=== PATIENT | female | born 1995 | race Caucasian/White ===

== ENCOUNTER → 2020-12-06 09:08 | Outpatient (BNVA) | payer MEDICAID, SELFPAY | PROVIDERS: Visit Provider Internal Medicine Pulmonary Disease | DX: J45.909 Unspecified asthma, uncomplicated (principal); Z91.09 Other allergy status, other than to drugs and biological substances | CPT/HCPCS: 99202 ==

== ENCOUNTER 2021-05-28 14:27 | Outpatient (REF) | payer MEDICAID, SELFPAY ==
[2021-05-28 15:24] LABS: MANUAL DIFF FLAG NO
[2021-05-28 15:37] LABS: Basophils Percent Auto 0.3 % (0-2); Eosinophils Absolute Auto 0.7 X10*3/uL (0.0-0.4); Eosinophils Percent Auto 4.8 % (0-4); Hematocrit 43.6 % (37-47); Hemoglobin 14.4 g/dl (12.0-16.0); Imm Gran Abs Auto 0.04 X10*3/uL (0.00-0.03); Imm Gran Pct Auto 0.3 % (0.0-0.4); Lymphocytes Absolute Auto 2.8 X10*3/uL (1.2-4.9); Lymphocytes Percent Auto 20.8 % (20-40); Mean Corpuscular Hemoglobin 29.1 pg (27.0-33.0); Mean Corpuscular Volume 88.1 fL (80-98); Mean Platelet Volume 11.3 fL (9.4-12.3); Monocytes Absolute Auto 0.6 X10*3/uL (0.1-1.2); Monocytes Percent Auto 4.7 % (2-11); Neutrophils Absolute Auto 9.4 X10*3/uL (2.0-8.3); Neutrophils Percent Auto 69.1 % (45-73); Platelet Count 236 X10*3/uL (160-400); Red Blood Count 4.95 X10*6/uL (4.20-5.50); Red Cell Distribution Width 13.4 % (11.0-16.0); White Blood Count 13.6 X10*3/uL (4.8-10.8)
== END 2021-05-28 14:28 | disposition home or self-care (01) ==
LOC: HO.LAB 14:27
PROVIDERS: Visit Provider Internal Medicine Pulmonary Disease
DX: Z91.09 Other allergy status, other than to drugs and biological substances (principal)
CPT/HCPCS: 36415; 82785; 85025; 86003

== ENCOUNTER 2021-07-31 12:42 | Outpatient (REF) | payer MEDICAID, SELFPAY ==
--- NOTE | ~2021-07-31 | XR_ITS ---
EXAMINATION: XR THORACIC SPINE CLINICAL INFORMATION: Thoracic spine pain. COMPARISON: Chest radiographs dated 06/30/2018. TECHNIQUE: Frontal, lateral and swimmer's views of the thoracic spine were obtained. FINDINGS: Vertebral body alignment is normal. There is a mild L1 anterior wedge compression fracture, which appears to be new from the lateral chest radiograph dated 06/30/2018. The disc spaces are well-maintained. No acute fracture or spondylolisthesis is seen. There is moderate to marked spondylosis extending from T8-9 through T10-11. The posterior elements are intact. The paravertebral soft tissues are unremarkable. XR/XR thoracic spine 3V IMPRESSION: 1. There is an age-indeterminate mild L1 anterior wedge compression fracture. 2. The disc spaces are well-maintained. 3. There is multi-level moderate to marked lower thoracic spondylosis.
== END 2021-07-31 12:43 | disposition home or self-care (01) ==
LOC: HO.XRAY 12:42
PROVIDERS: PCP Student in an Organized Health Care Education/Training Program; Visit Provider Student in an Organized Health Care Education/Training Program
DX: M54.6 Pain in thoracic spine (principal)
CPT/HCPCS: 72072

== ENCOUNTER 2022-01-30 08:06 | Outpatient (REF) | payer MEDICAID, SELFPAY ==
--- NOTE | ~2022-01-30 | XR_ITS ---
EXAMINATION: XR LUMBOSACRAL SPINE CLINICAL INFORMATION: Low back pain COMPARISON: Chest radiographs 06/30/2018, 08/17/2009 TECHNIQUE: 4 views of the lumbar spine are obtained. FINDINGS: There is normal lumbar segmentation with 5 nonrib-bearing lumbar vertebrae with normal lumbar lordosis. There is borderline levocurvature lower lumbar spine which may be positional. There is mild superior and inferior endplate depression at T12 with secondary degenerative changes and bridging anterior osteophyte at T11-T12. Compression not noted on chest radiographs 2017. Otherwise, the degenerative changes suggest chronic finding. Clinically correlate. The lumbar vertebrae show no vertebral compression or spondylolisthesis or destructive process. There are degenerative disc changes at L5-S1 with disc narrowing and mild endplate sclerosis and borderline vertebral body spurring. The SI joints and visualized sacrum are unremarkable. XR/XR lumbar spine 2-3V IMPRESSION: 1. Mild compression of T12 with secondary degenerative changes suggesting chronic finding. Clinical correlation. 2. No lumbar vertebral compression, spondylolisthesis, or destructive process. 3. Degenerative disc changes L5-S1.
== END 2022-01-30 08:07 | disposition home or self-care (01) ==
LOC: HO.XRAY 08:06
PROVIDERS: Absent Provider Student in an Organized Health Care Education/Training Program; PCP Student in an Organized Health Care Education/Training Program; Visit Provider Emergency Medicine
DX: M54.50 Low back pain, unspecified (principal)
CPT/HCPCS: 72100

== ENCOUNTER 2025-01-26 11:15 | Outpatient (REF) | payer MEDICAID, SELFPAY ==
--- OUTSIDE RECORDS SUMMARY | 2025-01-26 12:34 | XMS_ITS | Clinical Summary ---
Author Organization [facility] 's Address [address] [place] [address] Care Team Providers Care Vending Supervisor Name Role Phone Sherin Merritt MD Unavailable [phone] Art Bello MD Unavailable Eleanor Bearden MD Primary Care Provider [phone] Raúl Dumont MD Unavailable [phone] Kory Maynard MD Unavailable Carlita Thornton MD Unavailable [phone] Zaynab Walker MD Unavailable Wagner Allen MD Unavailable [phone] Leigh Ann Pillai MD Unavailable Wagner Allen MD Unavailable [phone] Leah Jones CNM Unavailable [phone] Source Comments Please note that some or all of the patient's information could have additional privacy protections. State laws allow health care providers to render certain types of treatment to minors without parental consent. Please do not assume that this information can be shared solely by obtaining just the consent of the patient's parent/guardian. Please determine if all or part of the patient's care was rendered without parent/guardian involvement. 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 Her echocardiogram showed normal cardiac anatomy and function without evidence of congenital heart disease or hypertrophy. I do not recommend any changes in the delivery plan. I do not recommend any special precautions for the remainder of the , during delivery, or in the immediate period. If there are any clinical concerns in the interim, we would be happy to perform a or evaluation. Family History Medical History Relation Name Comments Arrhythmia Neg Hx Cardiomyopathy Neg Hx Congenital heart disease Neg Hx Genetic disorder Neg Hx SIDS Neg Hx Sudden Cardiac Neg Hx Social History Tobacco Use Types Packs/Day Years Used Date Smoking Tobacco: Former Cigarettes Other Needs Answer Date Recorded Anything else about your child you'd like help w [facility]? Not on file 07/10/2023 Share good news about positive changes: Not on f ile 07/10/2023 Comments No Sex and Gender Information Value Date Recorded Sex Assigned at Not on file Legal Sex Female 3:27 PM EDT Gender Identity Not on file Sexual Orientation Not on file Last Filed Vital Signs Vital Sign Reading Time Taken Comments Blood Pressure - - Pulse - - Temperature - - Respiratory Rate - - Oxygen Saturation - - Inhaled Oxygen Concentration - - Weight 127 kg (280 lb) 06/11/2023 10:47 AM EDT Height 162.6 cm (5' 4 ) 06/11/2023 10:47 AM EDT Body Mass Index 48.06 06/11/2023 10:47 AM EDT Plan of Treatment Health Maintenance Due Date Last Done Comments DTaP/TDAP/TD VACCINES (1 - Tdap) 2001 ADOLESCENT HIV SCREENING 2007 COVID-19 Vaccine ( season) 2024 12/17/2021, 01/04/2021, 12/14/2020 INFLUENZA (#1) 2024 NIRSEVIMAB VACCINES UNDER 8 MONTHS Aged Out No longer eligible b ased on patient's age to complete this topic Insurance [facility] MEDICAID Care Teams Vending Supervisor Relationship Specialty Start Date End Date Eleanor Bearden MD [address] [place] [address] [phone] PCP - General Family Medicine 05/27/23 Sherin Merritt MD [address] [place] [address] 05/27/23 Art Bello MD [address] [place] [address] Maternal and Medicine 05/27/23 Raúl Dumont MD [address] [place] [phone] Consulting Physician Pediatric Surgery 05/28/23 Kory Maynard MD [address] [place] [phone] Consulting Physician Neurosurgery 05/28/23 Carlita Thornton MD [address] [place] [phone] Consulting Physician Maternal and Medicine 05/28/23 Zaynab Walker MD [address] [place] [phone] Consulting Physician Urology 05/28/23 Wagner Allen MD [address] [place] [phone] Consulting Physician Cardiology 05/29/23 Leigh Ann Pillai MD [address] [place] [phone] Consulting Physician Neonatology 05/29/23 Wagner Allen MD [address] [place], [place] [phone] Consulting Physician Cardiology 06/11/23 Leah Jones CNM [address] [place] [phone] Certified Nurse Identification Technician 06/11/23
--- OUTSIDE RECORDS SUMMARY | 2025-01-26 12:34 | XMS_ITS | Encounter Summary ---
Author Organization [employer] Address [address] [place] [address] [address] [place] [address] Care Team Providers Care Attraction Attendant Name Role Phone Eleanor Bearden MD Primary Care Provider [phone] Reason for Visit * Reason Onset Date Comments triage pt 1 out of 2 07/13/2024 Encounter Details Date Type Department Care Team ([facility] st Contact Info) Description 07/13/2024 Telephone [facility] [address] [place], [place] [phone] Eleanor Bearden MD [address] [place] [address] triage pt 1 out of 2 Social History Tobacco Use Types Packs/Day Years Used Date Smoking Tobacco: Former Cigarettes Q uit: 01/24/2023 Passive Smoke Exposure: Never Smokeless Tobacco: Never Alcohol Use Standard Drinks/Week Comments Never 0 (1 standard drink = 0.6 oz pur e alcohol) Depression Answer Date Recorded Patient Health Questionnaire-9 Score 0 01/20/2024 Patient Health Questionnaire-9 Score 0 01/20/2024 Last PHQ-9: Questionnaire Data Not on file 0 01/20/2024 Housing Stability Answer Date Recorded What is your housing situation today? I have darrian feliciano 01/20/[address] you li ve. Do you have problems with any of the following? None of the above 01/20/2024 Food Insecurity Answer Date Recorded Within the past 12 months, y ou worried that your food would run out before you got money to buy more: Never True 01/20/2024 Within the past 12 months,th e food you bought just didn't last and you didn't have enough money to get more: Never True Transportation Answer Date Recorded In the past 12 months, has l ack of transportation kept you from medical appts, meetings, work or from getting things needed for daily living? No 01/20/2024 Utilities Answer Date Recorded In the past 12 months, has t he electric, gas, oil or water company threatened to shut off services in your home? No 01/20/2024 Depression Answer Date Recorded Patient Health Questionnaire-2 Score 0 01/20/2024 Comments No Sex and Gender Information Value Date Recorded Sex Assigned at Female 08/25/2022 10:19 AM EDT Legal Sex Female 10:19 AM EDT Gender Identity Female 08/25/2022 10:19 AM EDT Sexual Orientation Straight 06/21/2024 4: 04 PM EDT documented as of this encounter Miscellaneous Notes * Telephone Encounter - Loni Beal - 07/13/2024 12:11 PM EDT .Symptoms: Sore Throat and fever Outcome: Schedule an appointment to be seen within 24 hours Reason: Caller denied all higher acuity questions The caller accepted this outcome. documented in this encounter Plan of Treatment Not on file documented as of this encounter Visit Diagnoses Not on filedocumented in this encounter Additional Health Concerns Assessment Noted Time PHQ-9 Depression Total Score: 0 01/20/20 10:54 AM EDT documented as of this encounter Care Teams Attraction Attendant Relationship Specialty Start Date End Date Eleanor Bearden MD [address] [place] [phone] PCP - General Family Medicine 03/09/20 Zohreh Gutierrez Client Delivery ManagerBellows Charger Assembler 01/20/24 documented as of this encounter
--- OUTSIDE RECORDS SUMMARY | 2025-01-26 12:34 | XMS_ITS | Clinical Summary ---
Author Organization [employer] Address [address] [facility] [address] [place] [address] Care Team Providers Care Account Financial Manager Name Role Phone Eleanor Bearden MD Primary Care Provider Allergies No known active allergies Medications fluticasone (Flonase Allergy Relief) 50 MCG/ACT nasal spray Administer 2 sprays into affected nostril(s) at bed time. 1 Active albuterol 108 (90 Base) MCG/ACT inhalerIndicatio ns:Moderate persistent asthma without complication Inhale 2 puffs every 4 (four) hours. 18 g 5 3 Active albuterol (2.5 MG/3ML) 0.083% nebulizer solutionIndicati ons:Moderate persistent asthma without complication Take 3 mL by nebulization every 6 (six) hours. 75 mL 5 3 Active Blood Pressure kitIndications:E levated blood pressure reading 1 Units in the morning. 1 kit 3 Active lisinopril (Prinivil) 10 MG tabletIndication s:Primary hypertension Take 1 tablet (10 mg) by mouth Once per day. 30 tablet 11 4 025 Active Fluticasone-Salm eterol (Advair Diskus) 250-50 MCG/ACT aerosol powderIndication s:Moderate persistent asthma without complication Inhale 1 puff 2 times daily. 60 each 5 4 Active Active Problems Problem Noted Date Diagnosed Date Elevated blood pressure reading 11/21/2022 Assessment & Plan (11/21/2022 4:24 PM EST): - If SBP < 130/DBP <80 mmHg in more than 75% of home self-monitoring, no need to continue monitoring and make f/u with PCP in 3 month - If SBP >130-165/DBP >80-115 mmHg , start amlodipine 5 mg qd and f/u with PCP in 1 month - If SBP > 165/ DBP> 115 mmHg, consult with covering provider - If SBP <90/DBP <50 mmHg, consult with covering provider. Arthritis of lumbar spine 01/31/2022 Mixed anxiety and depressive disorder 06/28/2013 Asthma 06/28/2013 Assessment & Plan (11/21/2022 4:22 PM EST): Current with mild exacerbation, will send steroid burst and refill controller/rescue inhalers, recommended f/u with PCP Allergic rhinitis 06/28/2013 Obesity 08/16/2012 Encounters Date Type Department Care Team Description 01/06/2025 Population Health Risk Score [facility] () Department [address] [place] [phone] Provider, Population Health Generic from Last 3 Months Immunizations Name Administration Dates Next Due DTP 03/05/1998, 5,1994,06/10,1994 HPV, Quadrivalent 05/09/2008,02/08/2008,11/02/19 08 Hep B, Adolescent or Pediatric 1994,1993,1994 Hib (HbOC) 05/20/1995, 4,1994,04/10 IPV 03/05/1998, 4,1994,03/31 Influenza injectable quadriv alent preservative free 07/31/2021 Influenza, IIV3, injectable 07/31/2023 Influenza, Split (incl. lola fied surface antigen) 08/16/2012 MMR 03/05/1998,02/10/1995 Meningococcal MPSV4 04/24/2009 Pfizer Covid-19 Vaccine 12+ 12/17/2021, 1,12/14/2020 Tdap 07/31/2023,10/04/2019,02/13/2006 Social History Tobacco Use Types Packs/Day Years Used Date Smoking Tobacco: Former Cigarettes Q uit: 01/24/2023 Passive Smoke Exposure: Never Smokeless Tobacco: Never Tobacco Cessation:Counseling Given: Not Answered Alcohol Use Standard Drinks/Week Comments Never 0 [...] Orientation Straight 06/21/2024 4: 04 PM EDT Last Filed Vital Signs Vital Sign Reading Time Taken Comments Blood Pressure 128/98 09/03/2024 9:12 AM EST Pulse 112 09/03/2024 9:04 AM EST Temperature 36.2 ??C (97.2 ??F) 09/03/2024 9:04 AM ES T Respiratory Rate 20 09/03/2024 9:04 AM EST Oxygen Saturation 100% 09/03/2024 9:04 AM EST Inhaled Oxygen Concentration - - Weight 152 kg (335 lb) 09/03/2024 9:04 AM EST Height 165.1 cm (5' 5 ) 09/03/2024 9:04 AM EST Body Mass Index 55.75 09/03/2024 9:04 AM EST Plan of Treatment Health Maintenance Due Date Last Done Comments HIV Screening 1994 Alcohol/Substance Use Screening 2006 Family Planning (PISQ) 2009 Hepatitis C Screening 02/08/2012 Pneumococcal Vaccine: Pediatrics (0 to 5 Years) and At-Risk Patients (6 to 49) Years) (1 of 2 - PCV) 2013 Pap Smear 2015 Cervical Cancer Screening 02/08/2024 HPV/Cotest 02/08/2024 COVID-19 Vaccine ( season) 2024 12/17/2021, 01/04/2021, 12/14/2020 Influenza Vaccine (#1) 2024 , 07/31/2021, 08/16/2012 Depression Screening 01/19/2025 01/20/2024, 01/20/20 24 SDOH Screening 01/19/2025 01/20/2024 Tobacco Screening 06/20/2025 06/20/2024 Lipid Panel 08/07/2026 08/07/2021 DTaP/Tdap/Td Vaccines (9 - Td or Tdap) 07/31/2033 07/31/2023, 10/04/2019, 02/13/2006, Additional history exists Zoster Vaccines (1 of 2) 02/08/2044 RSV Patients and Patients Aged 60 years or older (1 - 1-dose 75+ series) 2069 Hepatitis B Vaccines Completed 1994, 1994, 1994 HIB Vaccines Completed 05/20/1995, 07/26, 1994, Additional history exists IPV Vaccines Completed 03/05/1998, 08/26, 1994, Additional history exists HPV Vaccines Completed 05/09/2008, 01/24, 11/02/2007 Meningococcal Vaccine Aged Out 04/24/2009 No monisha richard eligible based on patient's age to complete this topic Hepatitis A Vaccines Aged Out No long er eligible based on patient's age to complete this topic RSV under 20 months Aged Out No longe r eligible based on patient's age to complete this topic Rotavirus Vaccines Aged Out No longer eligible based on patient's age to complete this topic Procedures Procedure Name Priority Date/Time Associated Diagnosis Comments LIPID PANEL, STANDARD Routine 08/07/2021 9:19 AM EDT from Last 3 Months or Most Recently Relevant to Health Maintenance Results * (ABNORMAL) LIPID PANEL, STANDARD (08/07/2021 9:19 AM EDT) Chol/HDLC Ratio 4.6 <5.0 (calc) [facility] Cholesterol, Total 192 <200 mg/dL [facility] HDL Cholesterol 42(L) > OR = 50 mg/dL [facility] Comment: Verified by repeat analysis. ?? LDL Cholesterol 119(H) mg/dL (calc) [facility] Comment: Reference range: <100 ?? Desirable range <100 mg/dL for primary prevention; ?? <70 mg/dL for patients with CHD or diabetic patients ?? with > or = 2 CHD risk factors. ?? LDL-C is now calculated using the Ashwin-Chung ?? calculation, which is a validated novel method providing ?? better accuracy than the Friedewald equation in the ?? estimation of LDL-C. ?? Ashwin TARIQ et al. COLT. 2013;310(19): 8386-5962 ?? (http://education.[employer]/faq/SRR685) Non-HDL Cholesterol 150(H) <130 mg/dL (calc) [facility] Comment: For patients with diabetes plus 1 major ASCVD risk ?? factor, treating to a non-HDL-C goal of <100 mg/dL ?? (LDL-C of <70 mg/dL) is considered a therapeutic ?? option. Triglycerides 192(H) <150 mg/dL [facility] 08/07/2021 9:19 AM EDT us Eleanor Bearden MD LAB BLOOD ORDERABLES Final Resul t [facility] [address] from Last 3 Months or Most Recently Relevant to Health Maintenance Insurance [facility] C3 Care Teams Account Financial Manager Relationship Specialty Start Date End Date Eleanor Bearden MD [address] [place] [phone] PCP - General Family Medicine 03/09/20 Zohreh Gutierrez Sulfuric Acid Plant OperatorCoastal/Harbor Defense Officer 01/20/24
--- OUTSIDE RECORDS SUMMARY | 2025-01-26 12:34 | XMS_ITS ---
Author Name [facility] Organization Unknown History of Medication Use Medication Directions Dispensed Refills Start Date End Date Stat us nitrofurantoin monohydrate (MACROBID) 100 MG capsule Take 1 capsule (100 mg total) by mouth 2 (two) times a day with meals. Dispense generic equivalent of MACROBID 08/06/2023 08/14/2023 active NIFEdipine (PROCARDIA XL) 30 MG 24 hr tablet TAKE 2 TABLETS BY MOUTH ONCE DAILY 10/29/2023 11/02/2023 active ibuprofen (MOTRIN) 600 MG tablet Take 1 tablet (600 mg total) by mouth 4 times daily (every 6 hours) as needed for mild pain. 09/29/2023 10/30/2023 active No known medications No known medications active Problems Problem Status Onset Date Problem Type Date of Resolution Source spina bifida with myelomeningocele affecting management of mother active 2023-06-[address] [facility] Encounter for management and injection of depo-Provera active EncounterDiagnosisAct [facility] High-risk in third trimester active 2023-08-06 ProblemAct [facility] Obesity in active 2023-08-06 ProblemAct [facility] Chronic hypertension active EncounterDiagnosisA ct [facility] Elevated blood pressure affecting , antepartum active 2023-08-26 ProblemAct [facility] Chronic hypertension affecting active 2023-09-14 ProblemAct [facility] care following delivery active EncounterDiagnosisAct [facility] Asthma active 2023-08-06 ProblemAct [facility] Family history of neural tube defect active 2023-08-06 ProblemAct [facility] History of active 2023-08-06 ProblemAct [facility] Anxiety in , antepartum active 2023-08-06 ProblemAct [facility] Encounters Encounter Type Encounter Reason Primary Diagnosis Location Date Ambulatory Encounter for routine follow-up Encounter for routine follow-up [facility] 12/22/2023 Inpatient Encounter for routine follow-up Encounter for routine follow-up [facility] 09/25/2023 Ambulatory Obesity complicating , third trimester Obesity complicating , third trimester [facility] 09/25/2023 Ambulatory Encounter for supervision of normal , unspecified, third trimester Encounter for supervision of normal , unspecified, third trimester [facility] 09/24/2023 Ambulatory Obesity complicating , third trimester Obesity complicating , third trimester [facility] 09/23/2023 Ambulatory Obesity complicating , third trimester Obesity complicating , third trimester [facility] 09/16/2023 Ambulatory Unspecified pre-existing hypertension complicating , unspecified trimester Unspecified pre-existing hypertension complicating , unspecified trimester [facility] 09/14/2023 Ambulatory Obesity complicating , third trimester Obesity complicating , third trimester [facility] 09/14/2023 Ambulatory Maternal care for (suspected) abnormality and damage, unspecified, not applicable or unspecified Maternal care for (suspected) abnormality and damage, unspecified, not applicable or unspecified [facility] 09/11/2023 Ambulatory [facility] 09/10/2023 Ambulatory Encounter for supervision of normal , unspecified, third trimester Encounter for supervision of normal , unspecified, third trimester [facility] 09/10/2023 Ambulatory Maternal care for (suspected) abnormality and damage, unspecified, not applicable or unspecified Maternal care for (suspected) abnormality and damage, unspecified, not applicable or unspecified [facility] 09/09/2023 Ambulatory Maternal care for (suspected) abnormality and damage, unspecified, not applicable or unspecified Maternal care for (suspected) abnormality and damage, unspecified, not applicable or unspecified [facility] 09/03/2023 Ambulatory Maternal care for (suspected) abnormality and damage, unspecified, not applicable or unspecified Maternal care for (suspected) abnormality and damage, unspecified, not applicable or unspecified [facility] 09/03/2023 Ambulatory Obesity complicating , third trimester Obesity complicating , third trimester [facility] 09/01/2023 Ambulatory Obesity complicating , third trimester Obesity complicating , third trimester [facility] 08/28/2023 Ambulatory [facility] 08/27/2023 Ambulatory Encounter for supervision of normal , unspecified, third trimester Encounter for supervision of normal , unspecified, third trimester [facility] 08/27/2023 Ambulatory Unspecified maternal hypertension, unspecified trimester Unspecified maternal hypertension, unspecified trimester [facility] 08/26/2023 Ambulatory Maternal care for (suspected) abnormality and damage, unspecified, not applicable or unspecified Maternal care for (suspected) abnormality and damage, unspecified, not applicable or unspecified [facility] 08/26/2023 Ambulatory Maternal care for (suspected) abnormality and damage, unspecified, not applicable or unspecified Maternal care for (suspected) abnormality and damage, unspecified, not applicable or unspecified [facility] 08/20/2023 Ambulatory Maternal care for (suspected) abnormality and damage, unspecified, not applicable or unspecified Maternal care for (suspected) abnormality and damage, unspecified, not applicable or unspecified [facility] 08/17/2023 Ambulatory Encounter for supervision of normal , unspecified, third trimester Encounter for supervision of normal , unspecified, third trimester [facility] 08/06/2023 Ambulatory Maternal care for (suspected) abnormality and damage, unspecified, not applicable or unspecified Maternal care for (suspected) abnormality and damage, unspecified, not applicable or unspecified [facility] 08/06/2023 Ambulatory Maternal care for (suspected) abnormality and damage, unspecified, not applicable or unspecified Maternal care for (suspected) abnormality and damage, unspecified, not applicable or unspecified [facility] 07/09/2023 Amb[place] [facility] [place] [place]23 Ambulatory Spina bifida, unspecified Spina bifida, unspecified [facility] [place] [place]2023 Ambulatory Other specified counseling Other specified counseling [facility] [place] [place]/11/2023 Ambulatory Maternal care for (suspected) central nervous system malformation or damage in fetus, spina bifida, not applicable or unspecified Maternal care for (suspected) central nervous system malformation or damage in fetus, spina bifida, not applicable or unspecified [facility] [place] [place] 06/11/2023 Ambulatory Spina bifida, unspecified Spina bifida, unspecified [facility] [place] [place]/11/2023 Ambulatory Maternal care for (suspected) central nervous system malformation or damage in fetus, spina bifida, not applicable or unspecified Maternal care for (suspected) central nervous system malformation or damage in fetus, spina bifida, not applicable or unspecified [facility] [place] [place] 06/11/2023 Ambulatory Spina bifida, unspecified Spina bifida, unspecified [facility] [place] [place] 06/11/2023 Ambulatory Maternal care for (suspected) abnormality and damage, unspecified, not applicable or unspecified Maternal care for (suspected) abnormality and damage, unspecified, not applicable or unspecified [facility] 06/11/2023 Care Team Organization Name Specialty Phone Email Start Date End Da te [facility] [place] [place] [facility] 11/15/2023 [facility] 06/11/2023 06/11/2023 [facility] 06/11/2023 01/11/2025 [facility] 06/11/2023
--- OUTSIDE RECORDS SUMMARY | 2025-01-26 12:34 | XMS_ITS | Encounter Summary ---
Author Organization [facility] Address [address] [place] [address] Care Team Providers Care Technical Education Teacher Name Role Phone Unknown Primary Care Provider [phone] Art Bello MD Unavailable Bernadine Monique MD Unavailable [phone] Encounter Details Date Type Department Care Team (Late st Contact Info) Description 08/27/2023 Documentation [facility] [address] [place] [address] [phone] Garland Mike MA [address] [place], [place] [phone] Social History Tobacco Use Types Packs/Day Years Used Date Smoking Tobacco: Never Assessed Comments Yes Sex and Gender Information Value Date Recorded Sex Assigned at Female 06/04/2023 11:46 AM EDT Gender Identity Female 06/09/2023 1:43 PM EDT Sexual Orientation Heterosexual (straight) 06/09 1:43 PM EDT documented as of this encounter Progress Notes * Garland Mike MA - 08/27/2023 11:09 AM EDTSummary: Peer Counselor Discussed with patient the benefits of BF, benefits of skin to skin, benefits of rooming-in. Patient is still contemplating feeding plan but is leaning more towards combo feeding for baby boy that will be going directly to NICU after for a surgery. Gave patient my information for additional support. Breast Pump Form faxed successfully to [employer]. documented in this encounter Plan of Treatment Not on file documented as of this encounter Visit Diagnoses Not on filedocumented in this encounter Care Teams Technical Education Teacher Relationship Specialty Start Date End Date Unknown Unknow Provider Address PCP - General 06/04/23 Art Bello MD [address] [place] [address] Maternal and Medicine 08/06/23 Bernadine Monique MD [address] [place] [id number] Obstetrics and Gynecology 08/17/23 documented as of this encounter
--- OUTSIDE RECORDS SUMMARY | 2025-01-26 12:34 | XMS_ITS | Encounter Summary ---
Author Organization [facility] Address [address] [place] [address] Care Team Providers Care Wireless Sales Manager Name Role Phone Unknown Primary Care Provider [phone] Art Bello MD Unavailable Bernadine Monique MD Unavailable [phone] Encounter Details Date Type Department Care Team (Late st Contact Info) Description 09/10/2023 Documentation [facility] [address] [place] [address] [phone] Garland Mike MA [address] [place], [place] [phone] Social History Tobacco Use Types Packs/Day Years Used Date Smoking Tobacco: Never Assessed Comments Yes Sex and Gender Information Value Date Recorded Sex Assigned at Female 06/04/2023 11:46 AM EDT Gender Identity Female 06/09/2023 1:43 PM EDT Sexual Orientation Heterosexual (straight) 06/09 1:43 PM EDT documented as of this encounter Progress Notes * Garland Mkie MA - 09/10/2023 10:16 AM ESTSummary: Peer Counselor Did not received pump. Call [facility] with patient for status. documented in this encounter Plan of Treatment Not on file documented as of this encounter Visit Diagnoses Not on filedocumented in this encounter Care Teams Wireless Sales Manager Relationship Specialty Start Date End Date Unknown Unknow Provider Address PCP - General 06/04/23 Art Bello MD [address] [place] [address] Maternal and Medicine 08/06/23 Bernadine Monique MD [address] [place] [phone] Obstetrics and Gynecology 08/17/23 documented as of this encounter
--- OUTSIDE RECORDS SUMMARY | 2025-01-26 12:34 | XMS_ITS | Clinical Summary ---
Author Organization [facility] it Address [id number] [place] [phone] Care Team Providers Care Master Of Ceremonies Name Role Phone Unavailable Primary Care Provider Unavailabl e Immunizations Name Administration Dates Next Due Pfizer SARS-CoV-2 COVID-19, mRNA, LNP-S, preservative free 12/17/2021,01/04/2021,12/14/2020 Social History Tobacco Use Types Packs/Day Years Used Date Smoking Tobacco: Never Assessed Comments Unknown Sex and Gender Information Value Date Recorded Sex Assigned at Not on file Legal Sex Female 1:45 AM EST Gender Identity Not on file Sexual Orientation Not on file Plan of Treatment Health Maintenance Due Date Last Done Comments DTaP,Tdap,and Td Vaccines (1 - Tdap) 2013 Hepatitis B Vaccines (1 of 3 - 19+ 3-dose series) 2013 Cervical Cancer Screening: P ap Smear 2015 Depression Screening 09/28/2022 HIV Screening 09/28/2022 Hepatitis C Screening 09/28/2022 Social Influencers of Health Screening 09/28/2022 COVID-19 Vaccine (4 - 2023-2 5 season) 2024 12/17/2021, 01/04/2021, 12/14/2020 Influenza Vaccine (#1) 2024 HIB Vaccines Aged Out No longer eligi ble based on patient's age to complete this topic HPV Vaccines Aged Out No longer eligi ble based on patient's age to complete this topic Hepatitis A Vaccines Aged Out No long er eligible based on patient's age to complete this topic IPV Vaccines Aged Out No longer eligi ble based on patient's age to complete this topic MMR Vaccines Aged Out No longer eligi ble based on patient's age to complete this topic Meningococcal ACWY Vaccine Aged Out N o longer eligible based on patient's age to complete this topic Meningococcal B Vacine Aged Out No lo nger eligible based on patient's age to complete this topic Pneumococcal Vaccine: Pediatrics (0 to 5 Years) and At-Risk Patients (6 to 64 Years) Aged Out No longer eligible b ased on patient's age to complete this topic RSV Immunization Patients Under 20 months Aged Out No longer eligible b ased on patient's age to complete this topic Varicella Vaccines Aged Out No longer eligible based on patient's age to complete this topic
--- OUTSIDE RECORDS SUMMARY | 2025-01-26 12:34 | XMS_ITS | Encounter Summary ---
Author Organization [facility] Address [address] [place] [id number] Care Team Providers Care Radio Journalist Name Role Phone Unknown Primary Care Provider [phone] Art Bello MD Unavailable Bernadine Monique MD Unavailable [phone] Encounter Details Date Type Department Care Team (Late st Contact Info) Description 09/10/2023 Scanned Document [facility] [address] [phone] Colton Duque CNM [address] [place] [address] Social History Tobacco Use Types Packs/Day Years Used Date Smoking Tobacco: Never Assessed Comments Yes Sex and Gender Information Value Date Recorded Sex Assigned at Female 06/04/2023 11:46 AM EDT Gender Identity Female 06/09/2023 1:43 PM EDT Sexual Orientation Heterosexual (straight) 06/09 1:43 PM EDT documented as of this encounter Plan of Treatment Not on file documented as of this encounter Visit Diagnoses Not on filedocumented in this encounter Care Teams Radio Journalist Relationship Specialty Start Date End Date Unknown Unknow Provider Address PCP - General 06/04/23 Art Bello MD [address] [place] [address] Maternal and Medicine 08/06/23 Bernadine Monique MD [address] [place] [phone] Obstetrics and Gynecology 08/17/23 documented as of this encounter
--- OUTSIDE RECORDS SUMMARY | 2025-01-26 12:35 | XMS_ITS | Clinical Summary ---
Author Organization [facility] Address [address] [place] [address] Care Team Providers Care Contract Programmer Name Role Phone Unknown Primary Care Provider [phone] Art Bello MD Unavailable Bernadine Monique MD Unavailable [phone] Allergies No known active allergies Medications Medication Sig Dispensed Refills Start Date End Date Status vitamin with iron and folic acid ( PLUS) 27-1 MG Tab tablet Take 1 tablet by mouth daily. 07/31/2023 Active Advair Diskus 250-50 MCG/ACT diskus inhaler INHALE 1 PUFF BY MOUTH 2 TIMES DAILY 08/19/2023 Active acetaminophen (TYLENOL) 500 MG tabletIndications:Post care following delivery Take 1 tablet (500 mg total) by mouth 4 times daily (every 6 hours) as needed for mild pain. 30 tablet 09/29/2023 Active ibuprofen (MOTRIN) 600 MG tabletIndications:Post care following delivery Take 1 tablet (600 mg total) by mouth 4 times daily (every 6 hours) as needed for mild pain. 30 tablet 09/29/2023 Active polyethylene glycol (miraLAx) 17 g packetIndications:Post care following delivery Take 1 packet (17 g total) by mouth daily. 30 packet 09/29/2023 Active senna-docusate (SENNA-S) 8.6-50 MGIndications:Postpart um care following delivery Take 1 tablet by mouth daily. 30 tablet 09/29/2023 Active NIFEdipine (PROCARDIA XL) 30 MG 24 hr tabletIndications:Electronic Publishing Specialist mike hypertension Take 2 tablets (60 mg total) by mouth daily. 30 tablet 1 11/02/2023 Active Active Problems Problem Noted Date Diagnosed Date Chronic hypertension affecting 023 Elevated blood pressure affecting , ant epartum 08/26/2023 Overview (08/27/2023): Patient with diagnosis of cHTN, prior Bps elevated from [facility] 02/09/2023 (4w6d) Seen in triage on 08/26 for elevated blood pressures noted at [facility] NST. Normal PEP and P/C TLTC 08/27/2023: Procardia 30 XL daily started, blood pressure cuff at home Assessment & Plan (09/24/2023 11:04 AM EST): - Patient with chronic hypertension; following with [facility] for NSTs. - Blood pressures above target today, will increase from 30XL to 60XL today; patient instructed to continue monitoring blood pressures at home, and call with any values that are high or low. We will repeat PEP and P:C today; patient aware that we will call if there is any abnormal values. Scheduled for NST on Thursday, will for blood pressure check at that appointment. Most recent growth scan at 34 weeks with appropriate growth. Assessment & Plan (09/10/2023 11:00 AM EST): - History of elevated blood pressure throughout her per chart review - PEP within normal limits and urine protein undetectable - BP today 121/58 - Continue Procardia 30 XL daily - Recommend patient continue to take blood pressure 1-2 times daily at home, have been within normal limits - Preeclampsia precautions discussed Assessment & Plan (08/27/2023 11:47 AM EDT): - History of elevated blood pressure throughout her per chart review - PEP within normal limits and urine protein undetectable - BP today 148/85 - Will start Procardia 30 XL daily - Recommend patient continue to take blood pressure 1-2 times daily at home - Preeclampsia precautions discussed Family history of neural tube defect 08/06/2023 Overview (08/06/2023): -L2-L3 myelomeningocele and Chiari 2 malformation -Seen by surgery, not a candidate for surgery due to BMI and lack of definitive hindbrain herniation through foramen magnum - GS at 30w2d EFW 1588g 45%, plan for repeat GS in 4 weeks -Plan for repair 24-48 hours after -Will plan for preoperative NSGY visit 1-2 weeks prior to -Scheduled for RLTCS 12/6 at 38w1d Assessment & Plan (09/24/2023 10:57 AM EST): Plan for repair 24-48 hours after c/section Assessment & Plan (08/27/2023 11:40 AM EDT): -L2-L3 myelomeningocele and Chiari 2 malformation -Seen by surgery, not a candidate for surgery due to BMI and lack of definitive hindbrain herniation through foramen magnum -GS at 30w2d EFW 1588g 45%, plan for repeat GS in 4 weeks -Plan for repair 24-48 hours after -Will plan for preoperative NSGY visit 1-2 weeks prior to -Scheduled for RLTCS 12/6 at 38w1d Assessment & Plan (08/06/2023 11:43 AM EDT): -L2-L3 myelomeningocele and Chiari 2 malformation -Seen by surgery, not a candidate for surgery due to BMI and lack of definitive hindbrain herniation through foramen magnum - GS at 30w2d EFW 1588g 45%, plan for repeat GS in 4 weeks -Plan for repair 24-48 hours after -Will plan for preoperative NSGY visit 1-2 weeks prior to -Scheduled for RLTCS 12/6 at 38w1d Obesity in 08/06/2023 Overview (08/06/2023): - BMI 51 - Plan for weekly NST starting at 34 weeks gestation Assessment & Plan (09/24/2023 10:57 AM EST): Continued on NSTs for cHTN and BMI Assessment & Plan (08/27/2023 11:41 AM EDT): - BMI 51 - Continue NSTs Assessment & Plan (08/06/2023 11:15 AM EDT): - BMI 51 - Plan for weekly NST starting at 34 weeks gestation History of 08/06/2023 Overview (08/06/2023): - For NRFHT - Scheduled for RLTCS 09/30 at 38w1d Assessment & Plan (09/24/2023 10:57 AM EST): Scheduled for repeat on 09/30 at 38w1d; aware to present to L&D with labor concerns Assessment & Plan (09/10/2023 11:03 AM EST): - Scheduled for RLTCS / at 38w1d Assessment & Plan (08/27/2023 11:41 AM EDT): - Scheduled for RLTCS 09/30 at 38w1d Assessment & Plan (08/06/2023 11:16 AM EDT): Hx CS in G1 for NRFHT Scheduled for rLTCS on 09/30 at 38w1d Anxiety in , antepartum 08/06/2023 Overview (08/06/2023): - Not on medications Assessment & Plan (09/24/2023 10:58 AM EST): Anxiety well controlled, endorses good support Assessment & Plan (09/10/2023 11:03 AM EST): Well-controlled, not on any medications. Assessment & Plan (08/27/2023 11:41 AM EDT): - No current medications or therapy Assessment & Plan (08/06/2023 11:17 AM EDT): No meds Denies SI or HI High-risk in third trimester Overview (09/12/2023): First Trimester: [x] routine labs - outside records [x] early glucose screen: failed 1 hour gtt, 3 hour gtt 102/119/125/108 [ ] CF Negative, SMA/Fragile X no results [x] evidence of Varicella immunity - Varicella immune [x] gc/chlamydia - negative 03/10 [x] pap, 03/10/23 NILM [x] first trimester screen- T21/T18 screen negative [ ] Pre-eclampsia risk assessment [ ] Reviewed weight gain in [ ] Covid information sheet given [ ] Accepts blood products? [ ] If no, PATC referral ordered Second Trimester: [ ] sequential screen/quad screen/msAFP [x] anatomy ultrasound Third Trimester: [ ] 3 hour GTT - already done per patients, will request records. [ ] repeat Hgb/Hct, HIV, RPR - already done per patients, will request records. Sent again per patient preference 09/10/2023 RE [ ] Wishes reviewed [ X ] GBS culture done - 09/10/2023 --> neg Immunizations: [ x ] flu vaccine - already done per patients, will request records [ x ] Tdap - already done per patients, will request records [ ] Covid Vaccine Plans: [ ] contraception plans -Depo [ x ] feeding plan - B+B, referral to placed Delivery Plan: [x] Mode of delivery [x] Timing of delivery [x] Delivery scheduled: RLTCS 09/30 at 38w1d [ ] H&P completed Assessment & Plan (09/24/2023 11:05 AM EST): - Up-to-date with lab work -Patient believes that she has already completed the Tdap as well as RSV vaccine at [facility] prior to transfer -Confirm plans for Depo-Provera - Will present to hospital for repeat on 09/30 Assessment & Plan (09/10/2023 11:01 AM EST): course and labs reviewed. Third trimester labs sent. GBS performed today. labor precautions reviewed. Patient would like Depo for contraception . Assessment & Plan (08/27/2023 11:44 AM EDT): - labs up-to-date per patient report - Status post Tdap and flu vaccines - RSV offered today, patient believes she is already had the vaccine - Records release resigned and sent today - Patient considering LNG-IUD versus Nexplanon - Plan for visit today Assessment & Plan (08/06/2023 11:41 AM EDT): - Per patient, she had her third trimester labs and glucola done this week but the results are not back yet. She also already got her TDAP and flu shot. Will have patient sign release of records form. - records reviewed: - OPOS/Ab neg - Aneuploidy and carrier screen negative - Pap 03/10/23 NILM, GC/CT neg - HBsAg neg - Rubella/Varicella immune - HIV/RPR neg 03/10 - Breast and bottle feeding, referral to placed - Undecided on BCM, handout provided - Scheduled for rLTCS on 09/30 at 38w1d - Return in 2 weeks for OB visit. Asthma 08/06/2023 Overview (08/06/2023): Advair twice daily Albuterol PRN, no recent use No history of intubations or hospitalizations. Assessment & Plan (09/24/2023 10:56 AM EST): Asthma has been well controlled Assessment & Plan (08/27/2023 11:40 AM EDT): -Advair daily with albuterol as needed -No history of intubations or hospitalizations Assessment & Plan (08/06/2023 11:14 AM EDT): Advair twice daily Albuterol PRN, no recent use No history of intubations or hospitalizations. Resolved Problems Problem Noted Date Diagnosed Date Resolved Date care following delivery 09/28/2023 12/21/2023 Asymptomatic bacteriuria dur ing in third trimester 08/06/2023 12/22/2023 Overview (08/06/2023): 08/06/2023 +LE, nitrites on Udip. Asymptomatic today. UCx sent. Will treat empirically with Macrobid 100 mg BID x 7days. Rx sent to pharmacy. Assessment & Plan (09/24/2023 10:59 AM EST): Denies any current symptoms Assessment & Plan (08/27/2023 11:45 AM EDT): - Treated at last visit with Macrobid x7 days - No evidence of continued infection on urine dip today Social History Tobacco Use Types Packs/Day Years Used Date Smoking Tobacco: Never Assessed Tobacco Cessation:Counseling Given: Not Answered AUDIT-C Answer Date Recorded Q1: How often do you have a drink containing alcohol? Never 09/25/2023 Q2: How many drinks containi ng alcohol do you have on a typical day when you are drinking? Patient does not drink Q3: How often do you have si x or more drinks on one occasion? Never 09/25/2023 Sex and Gender Information Value Date Recorded Sex Assigned at Female 06/04/2023 11:46 AM EDT Gender Identity Female 06/09/2023 1:43 PM EDT Sexual Orientation Heterosexual (straight) 06/09 1:43 PM EDT Last Filed Vital Signs Vital Sign Reading Time Taken Comments Blood Pressure 151/100 12/22/2023 9:30 AM EST Pulse 104 12/22/2023 9:00 AM EST Temperature 37 ??C (98.6 ??F) 09/29/2023 7:45 AM EST Respiratory Rate 16 09/29/2023 7:45 AM EST Oxygen Saturation 100% 09/29/2023 7:45 AM EST Inhaled Oxygen Concentration - - Weight 137 kg (301 lb) 12/22/2023 9:00 AM EST Height 162.6 cm (5' 4 ) 12/22/2023 9:00 AM EST Body Mass Index 51.67 12/22/2023 9:00 AM EST Plan of Treatment Health Maintenance Due Date Last Done Comments Hepatitis C Virus Screening 1994 DTaP/Tdap/Td Vaccines (1 - Tdap) 2013 Hepatitis B Vaccines (1 of 3 - 19+ 3-dose series) 2013 Pneumococcal Vaccine: Pediatric (0-5 Years) and At-Risk Patients (6 to 49 Years) (1 of 2 - PCV) 2013 Pap Smear (Ages 21-65) 2015 Influenza Vaccine 05/26/2024 07/31/2023, 07/31/2021, 08/16/2012 COVID-19 Vaccine (2023-11 5 season) 2024 12/17/2021, 01/04/2021, 12/14/2020 HIV Screening Completed 09/10/2023 HPV Vaccines Aged Out No longer eligi ble based on patient's age to complete this topic Procedures Procedure Name Priority Date/Time Associated Diagnosis Comments HIV 1/2 AG/AB CMIA REFLEX TO CONFIRMATION Routine 09/10/2023 11:02 AM EST Third trimester from Last 3 Months or Most Recently Relevant to Health Maintenance Results * HIV 1/2 Ag/Ab CMIA Reflex to Confirmation (09/10/2023 11:02 AM EST) HIV 1/2 Ag/Ab CMIA Nonreactive Nonreactive 09/11/2023 10:33 AM EST [facility] Comment: Results show no evidence of infection by HIV 1/2. If clinically indicated, repeat CMIA or test by nucleic acid amplification. HIV 1/2 Antigen/Antibody CMIA reflex to confirmation AND HIV-1 RNA viral load recommended in patients who are taking or have recently taken PrEP. Blood specimen (specimen) Serum specimen / Unknown 09/10/2023 11:02 AM EST 09/10/2023 2:29 PM EST Loni Montoya DO LAB BLOOD ORDERABLES [facility] [address] [place] [address], from Last 3 Months or Most Recently Relevant to Health Maintenance Advance Directives * Full Code (Latest Code Status on File) Date Activated Date Inactivated Comments 09/25/2023 3:58 PM * Full Code Date Activated Date Inactivated Comments 09/14/2023 10:30 AM 09/25/2023 10:44 AM * Full Code Date Activated Date Inactivated Comments 08/26/2023 10:25 AM 09/14/2023 10:13 AM Care Teams Contract Programmer Relationship Specialty Start Date End Date Unknown Unknow Provider Address PCP - General 06/04/23 Art Bello MD [address] [place] [address] Maternal and Medicine 08/06/23 Bernadine Monique MD [address] [place] [id number] Obstetrics and Gynecology 08/17/23
[2025-01-26 14:35] LABS: Alanine Aminotransferase 93 U/L (0-31); Albumin Level 4.1 g/dL (3.5-5.0); Alkaline Phosphatase 77 U/L (39-117); Anion Gap 9 (12-20); Aspartate Amino Transferase 67 U/L (5-31); Bilirubin Direct 0.3 mg/dL (0.0-0.5); Blood Urea Nitrogen 9 mg/dL (9-16); Calcium 9.1 mg/dL (8.4-10.2); Carbon Dioxide 28 mmol/L (22-29); Chloride 106 mmol/L (96-108); Cholesterol 205 mg/dL (<200); Estimated Glomerular Filt Rate > 60; Glucose Random 100 mg/dL (60-115); HDL Cholesterol 45 mg/dL (>40); LDL Cholesterol Calculated 122 mg/dL (<100); Potassium 4.4 mmol/L (3.3-5.1); Sodium 139 mmol/L (135-145); Total Protein 7.7 g/dL (6.5-8.0); Triglycerides 193 mg/dL (<150)
[2025-01-26 14:50] LABS: TSH reflex Free T4 0.58 uIU/mL (0.32-4.0)
== END 2025-01-26 11:16 | disposition home or self-care (01) ==
LOC: HO.CHCLDS 11:15
PROVIDERS: Visit Provider Student in an Organized Health Care Education/Training Program
DX: I10 Essential (primary) hypertension (principal); E66.01 Morbid (severe) obesity due to excess calories; Z68.43 Body mass index [BMI] 50.0-59.9, adult
CPT/HCPCS: 36415; 80048; 80061; 80076; 84443

== ENCOUNTER 2025-07-25 11:45 | Outpatient (REF) | payer MEDICAID, SELFPAY ==
--- OUTSIDE RECORDS SUMMARY | 2025-07-25 11:00 | XMS_ITS | Encounter Summary ---
Author Organization [employer] Address [address] [place] [address] 7 [place] [address] Care Team Providers Care Supervisor Paper Coating Name Role Phone Valorie Mcmillan NP Primary Care Provider [phone] Encounter Details Date Type Department Care Team ([facility] st Contact Info) Description 07/25/2025 11:00 AM EDT Office Visit [facility] [address] [place] [address], [place] [phone] Valorie Mcmillan NP [address] [place], [place] [phone] Class 3 severe obesity due to excess calories without serious comorbidity with body mass index (BMI) of 50.0 to 59.9 in adult (Primary Dx); Mixed anxiety and depressive disorder; History of gestational diabetes; Encounter for immunization; Primary hypertension; Tobacco dependence; Anxiety Social History Tobacco Use Types Packs/Day Years Used Date Smoking Tobacco: Former Cigarettes Q uit: 01/24/2023 Passive Smoke Exposure: Never Smokeless Tobacco: Never Tobacco Cessation:Counseling Given: Not Answered Alcohol Use Standard Drinks/Week Comments Never 0 (1 standard drink = 0.6 oz pur e alcohol) Depression Answer Date Recorded Patient Health Questionnaire-9 Score 5 07/25/2025 Patient Health Questionnaire-9 Score 5 07/25/2025 Last PHQ-9: Questionnaire Data Not on file 0 07/25/2025 Housing Stability Answer Date Recorded What is your housing situation today? I have darrian feliciano 07/25/[address] you li ve. Do you have problems with any of the following? None of the above 07/25/2025 Food Insecurity Answer Date Recorded Within the past 12 months, y ou worried that your food would run out before you got money to buy more: Never True 07/25/2025 Within the past 12 months,th e food you bought just didn't last and you didn't have enough money to get more: Never True Transportation Answer Date Recorded In the past 12 months, has l ack of transportation kept you from medical appts, meetings, work or from getting things needed for daily living? No 07/25/2025 Utilities Answer Date Recorded In the past 12 months, has t he [email or web address], gas, oil or water company threatened to shut off services in your home? No 07/25/2025 Depression Answer Date Recorded Patient Health Questionnaire-2 Score 2 07/25/2025 Internet Access Answer Date Recorded Internet Access Q1 No 07/25/2025 Internet Access Q2 Not on file 07/25/2025 Comments No Sex and Gender Information Value Date Recorded Sex Assigned at Female 08/25/2022 10:19 AM EDT Legal Sex Female 10:19 AM EDT Gender Identity Female 08/25/2022 10:19 AM EDT Sexual Orientation Straight 06/21/2024 4: 04 PM EDT documented as of this encounter Last Filed Vital Signs Vital Sign Reading Time Taken Comments Blood Pressure 142/80 07/25/2025 11:11 AM EDT Pulse 114 07/25/2025 11:11 AM EDT Temperature 36.4 C (97.6 F) 07/25/2025 11:11 AM EDT Respiratory Rate 20 07/25/2025 11:11 AM EDT Oxygen Saturation 98% 07/25/2025 11:11 AM EDT Inhaled Oxygen Concentration - - Weight 150 kg (331 lb 6.4 oz) 07/25/2025 11:11 A M EDT Height 165.1 cm (5' 5 ) 07/25/2025 11:11 AM EDT Body Mass Index 55.15 07/25/2025 11:11 AM EDT documented in this encounter Functional Status * Over the past 2 weeks, how often have you been bothered by any of the following problems? Question Answer Date of Assessment Author Patient Health Questionnaire -2 Score 2 07/25/2025 11:42 AM EDT Arash Vu MA * Little interest or pleasure in doing things Answer Date of Assessment Author Several days 07/25/2025 11:42 AM Arash Anderson MA * Feeling down, depressed, or hopeless Answer Date of Assessment Author Several days 07/25/2025 11:42 AM Arash Anderson MA * Trouble falling or staying asleep, or sleeping too much Answer Date of Assessment Author More than half the days 07/25/2025 11:42 AM Arash Anderson MA * Feeling tired or having little energy Answer Date of Assessment Author Several days 07/25/2025 11:42 AM Arash Anderson MA * Poor appetite or overeating Answer Date of Assessment Author Not at all 07/25/2025 11:42 AM Arash Anderson MA * Feeling bad about yourself - or that you are a failure or have let yourself or your family down Answer Date of Assessment Author Not at all 07/25/2025 11:42 AM Arash Anderson MA * Trouble concentrating on things, such as reading the newspaper or watching television Answer Date of Assessment Author Not at all 07/25/2025 11:42 AM Arash Anderson MA * Moving or speaking so slowly that other people could have noticed? Or the opposite - being so fidgety or restless that you have been moving around a lot more than usual. Answer Date of Assessment Author Not at all 07/25/2025 11:42 AM Arash Anderson MA * Thoughts that you would be better off or hurting yourself in some way Answer Date of Assessment Author Not at all 07/25/2025 11:42 AM Arash Anderson MA * Patient Health Questionnaire-9 Score Answer Date of Assessment Author 5 07/25/2025 11:42 AM Arash Anderson MA * How difficult have these problems made it for you to do your work, take care of things at home, or get along with other people? Answer Date of Assessment Author Somewhat difficult 07/25/2025 11:42 AM Arash Rain MA * Over the last 2 weeks, how often have you been bothered by any of the following problems? Question Answer Date of Assessment Author Feeling nervous, anxious, or on edge 1 07/25/2025 11:42 AM EDArash Arguello MA Not being able to stop or co ntrol worrying 2 07/25/2025 11:42 AM Arsah Anderson MA Worrying too much about diff erent things 1 07/25/2025 11:42 AM Arash Anderson MA Trouble relaxing 1 07/25/2025 11:42 AM EDT Arash Vu MA Being so restless that it is hard to sit still 1 07/25/2025 11:42 AM Arash Anderson MA Becoming easily annoyed or irritable 1 07/25/2025 11:42 AM Arash Anderson MA Feeling afraid as if somethi ng awful might happen 1 07/25/2025 11:42 AM Arash Anderson MA GISELLA-7 Total Score 8 07/25/2025 11:42 AM Arash Anderson MA documented as of this encounter Progress Notes * Valorie Mcmillan NP - 07/25/2025 11:00 AM EDT Subjective: Juju Galvez, 30-year-old female - History of gestational diabetes during last , not followed up - History of high blood pressure since , currently on same antihypertensive medication since then - Last Depo-Provera injection in February 2025, discontinued due to significant weight gain - Reports increased appetite after stopping Depo-Provera - Reports high cholesterol and high triglycerides on previous lab work, no treatment initiated - Reports anxiety since of youngest child, feeling busy all day, no downtime - Denies headache despite high blood pressure - Uses asthma inhaler once daily - Attempting to reduce cigarette use since , dislikes smell of cigarettes - Not sexually active - Last Pap smear approximately one year ago, reported as normal - Participates in family therapy due to oldest child Problem List[1] Surgical History[2] Family History[3] Social History Living situation: at home with two kids Employment/Education: [employer] Diet/exercise: had lost weight to 240, Substance use: -alcohol none -tobacco 6-7 has cut down -opioids no Sexual activity: no Contraception: declines Mental health: Patient Health Questionnaire-9 Score: 5 (07/25/2025 11:42 AM) Patient Health Questionnaire-2 Score: 2 (07/25/2025 11:42 AM) Thoughts that you would be better off or hurting yourself in some way: Not at all (07/25/2025 11:42 AM) GISELLA-7 Total Score: 8 (07/25/2025 11:42 AM) No LMP recorded. Allergies[4] Review of Systems Constitutional: Negative for activity change and appetite change. Respiratory: Negative for apnea and chest tightness. Cardiovascular: Negative for chest pain and leg swelling. Genitourinary: Negative for difficulty urinating and dyspareunia. Vitals: 07/25/25 1111 BP: (!) 142/80 BP Location: Left arm Patient Position: Sitting BP Cuff Size: Large adult Pulse: (!) 114 Resp: 20 Temp: 97.6 ??F (36.4 ??C) TempSrc: Oral SpO2: 98% Weight: 331 lb 6.4 oz (150 kg) Height: 5' 5 (1.651 m) Physical Exam Vitals reviewed. Constitutional: Appearance: She is obese. HENT: Head: Normocephalic and atraumatic. Nose: Nose normal. Eyes: Conjunctiva/sclera: Conjunctivae normal. Cardiovascular: Rate and Rhythm: Normal rate and regular rhythm. Pulmonary: Effort: Pulmonary effort is normal. Breath sounds: Normal breath sounds. Musculoskeletal: Cervical back: Normal range of motion and neck supple. Neurological: General: No focal deficit present. Mental Status: She is alert. - CARDIOVASCULAR: Normal heart sounds. - LUNGS: Respiratory effort assessed. Assessment & Plan Class 3 severe obesity due to excess calories without serious comorbidity with body mass index (BMI) of 50.0 to 59.9 in adult (HCC) Orders: Comprehensive Metabolic Panel; Future Hemoglobin A1c; Future Lipid Panel, Standard; Future Mixed anxiety and depressive disorder Orders: Lipid Panel, Standard; Future History of gestational diabetes Encounter for immunization Orders: FLU VACCINE TRIVALENT [id number] (Fluarix) 19 yrs + Primary hypertension Tobacco dependence Anxiety Assessment & Plan Class 3 severe obesity due to excess calories without serious comorbidity with body mass index (BMI) of 50.0 to 59.9 in adult (HCC): - Morbid obesity with BMI in the 50-59.9 range. Weight gain noted after Depo- Provera use. Comorbidities include hypertension and elevated cholesterol. - Encouraged whole foods, increased fruit and vegetable intake, and regular movement. Referred to weight emergency management consultant. Submitted prior authorization for Zepbound; will await insurance response and may require step therapy with alternative medications if denied. Will review labs and discuss further management at follow-up in one month. Mixed anxiety and depressive disorder: - Anxiety and stress related to busy lifestyle and lack of downtime. No current pharmacologic treatment. Engaged in family therapy. - Discussed behavioral strategies for anxiety management, including mindfulness and breathing exercises. Offered option to meet with behavioral health if symptoms worsen or if additional support is needed. History of gestational diabetes: - Gestational diabetes during prior , unresolved post- status unclear. - Ordered blood work to assess current glycemic status. Will review results at follow-up. Primary hypertension: - Hypertension, previously on lisinopril 10 mg, suboptimal control. - Increased lisinopril to 20 mg daily. Advised to take two tablets until new prescription is pickedup. Ordered blood work for cholesterol, liver, kidney function, and blood sugar. Advised home bloodpressure monitoring. Will review blood pressure and labs at follow-up in one month. Tobacco dependence: - Ongoing tobacco use, reduced from previous levels. Motivated to cut down further. - Prescribed nicotine patch (middle dose). Provided instructions for use and site rotation. Encouraged use of smoking cessation apps and self-reward strategies. - Risks and side effects: Discussed potential for skin irritation and pruritus at patch site, possible vivid dreams if worn overnight, and nausea if nicotine intake is excessive. Anxiety: - Anxiety symptoms related to stress and lifestyle. No current pharmacologic intervention. - Reinforced behavioral strategies and mindfulness techniques. Offered behavioral health referral if symptoms worsen. Hyperlipidemia: - Hyperlipidemia with previously elevated cholesterol and triglycerides. - Ordered blood work to reassess lipid profile. Advised dietary modifications to lower cholesterol.Will review results at follow-up and consider pharmacologic therapy if indicated. Prescription - Lisinopril 20 mg daily, increase from 10 mg - Nicotine patch, medium strength daily; apply to shoulder, rotate sites; may cause skin irritation, itching, vivid dreams; remove if nausea occurs Appointments - Referral to eye doctor - Follow-up in one month to review labs, blood pressure, and weight Routine Screening and Health Maintenance Optometry: No Dentist: Yes No visits with results within 3 Month(s) from this visit. Latest known visit with results is: Office Visit on 03/17/2025 Component Date Value Ref Range Status Preg Test, Ur 03/17/2025 Negative Negative, Indeterminate, None Detected, Invalid, Specimen unsatisfactory for evaluation, Weakly Positive, 2+ Final QC Media Lot # 03/17/2025 [id number] Final Lot# Expiration Date 03/17/2025 [id number] Final QC TEST 03/17/2025 (POSITIVE) Final passed Routine Cancer Screening Cervical CA: Pap in 3 years: due 03/10/2026 HPV testing in 3 years: due 03/10/2026 Current Medications[5] Immunization History Administered Date(s) Administered DTP 1994, 1994, 1994, 05/20/1995, 03/05/1998 HPV, Quadrivalent 11/02/2007, 02/08/2008, 05/09/2008 Hep B, Adolescent or Pediatric 1994, 1994, 1994 Hib (HbOC) 1994, 1994, 1994, 05/20/1995 IPV 1994, 1994, 1994, 03/05/1998 Influenza injectable quadrivalent preservative free 07/31/2021 Influenza, IIV3, injectable 07/31/2023 Influenza, Split (incl. purified surface antigen) 08/16/2012 Influenza, seasonal, injectable, preservative free 07/25/2025 MMR 02/10/1995, 03/05/1998 Meningococcal MPSV4 04/24/2009 Pfizer Covid-19 Vaccine 12+ 12/14/2020, 01/04/2021, 12/17/2021 Tdap 02/13/2006, 10/04/2019, 07/31/2023 This note was drafted using Ambient (AI) technology. The patient/patient's guardian has been informed and has consented to the use of this technology: Yes Based on our discussion, I have outlined the following instructions for you: - Eat more whole foods, and try to include more fruits and vegetables in your meals. Try to move your body regularly, such as walking or other activities you enjoy. - You have been referred to a weight emergency management consultant for extra support with your weight. - Your doctor has asked your insurance about a medicine called Yovanny. You may need to try other medicines first if insurance does not approve it. - You are currently taking lisinopril 10 mg for blood pressure. For now, take two tablets each day until you get your new prescription for lisinopril 20 mg. - Check your blood pressure at home regularly and keep a record of your readings. - Blood tests have been ordered to check your cholesterol, liver, kidney function, blood sugar, andcurrent blood sugar status. - Blood tests have been ordered to check your cholesterol levels again. - Try to eat foods that help lower your cholesterol, such as more fruits, vegetables, and whole grains. - You are using a nicotine patch (middle dose) to help you quit smoking. Change the spot where you put the patch each time. Watch for skin irritation or itching where you place the patch. If you wearthe patch overnight, you might have vivid dreams. If you feel sick to your stomach, you may be getting too much nicotine. - Try using apps to help you quit smoking and reward yourself for your progress. - You are taking part in family therapy to help with anxiety and stress. - Practice mindfulness and breathing exercises to help manage anxiety and stress. - If your anxiety or stress gets worse, you can meet with a behavioral health specialist for more support. Next appointment(s): - Referral to eye doctor - Follow-up in one month to review labs, blood pressure, and weight Thank you again for your visit, and we look forward to supporting you in your journey to better health. [1] Patient Active Problem List Diagnosis Obesity Mixed anxiety and depressive disorder Asthma Arthritis of lumbar spine Allergic rhinitis Elevated blood pressure reading History of gestational diabetes Encounter for immunization Primary hypertension Tobacco dependence Anxiety [2] Past Surgical History: Procedure Laterality Date SECTION, LOW TRANSVERSE [3] No family history on file. [4] No Known Allergies [5] Current Outpatient Medications Medication Sig Dispense Refill albuterol (2.5 MG/3ML) 0.083% nebulizer solution Take 3 mL by nebulization every 6 (six) hours. 75 mL 5 albuterol 108 (90 Base) MCG/ACT inhaler Inhale 2 puffs every 4 (four) hours. 18 g 5 Blood Pressure kit 1 Units in the morning. 1 kit 0 fluticasone (Flonase Allergy Relief) 50 MCG/ACT nasal spray Administer 2 sprays into affected nostril(s) at bed time. Fluticasone-Salmeterol (Advair Diskus) 250-50 MCG/ACT aerosol powder Inhale 1 puff 2 times daily. 60 each 5 lisinopril (Prinivil) 20 MG tablet Take 1 tablet (20 mg) by mouth Once per day. 30 tablet 11 nicotine (Nicoderm CQ) 14 MG/24HR patch Place 1 patch on the skin 1 (one) time each day at the sametime. 30 patch 0 Tirzepatide-Weight Management (Zepbound) 2.5 MG/0.5ML solution auto-injector Inject 0.5 mL (2.5 mg)under the skin 1 (one) time per week. 2 mL 3 No current facility-administered medications for this visit. documented in this encounter Miscellaneous Notes * Assessment & Plan Note - Valorie Mcmillan NP - 07/25/2025 11:00 AM EDTAssociated Problem(s): Obesity Orders: Comprehensive Metabolic Panel; Future Hemoglobin A1c; Future Lipid Panel, Standard; Future * Assessment & Plan Note - Valorie Mcmillan NP - 07/25/2025 11:00 AM EDTAssociated Problem(s): Mixed anxiety and depressive disorder Orders: Lipid Panel, Standard; Future * Assessment & Plan Note - Valorie Mcmillan NP - 07/25/2025 11:00 AM EDTAssociated Problem(s): History of gestational diabetes * Assessment & Plan Note - Valorie Mcmillan NP - 07/25/2025 11:00 AM EDTAssociated Problem(s): Encounter for immunization Orders: FLU VACCINE TRIVALENT [id number] (Fluarix) 19 yrs + * Assessment & Plan Note - Valorie Mcmillan NP - 07/25/2025 11:00 AM EDTAssociated Problem(s): Primary hypertension * Assessment & Plan Note - Valorie Mcmillan NP - 07/25/2025 11:00 AM EDTAssociated Problem(s): Tobacco dependence * Assessment & Plan Note - Valorie Mcmillan NP - 07/25/2025 11:00 AM EDTAssociated Problem(s): Anxiety documented in this encounter Plan of Treatment Upcoming Encounters Date Type Department Care Team (Late st Contact Info) Description 08/21/2025 11:15 AM EDT Office Visit [facility] [address] [place] [address] Valorie Mcmillan NP [address] [place] [address] Scheduled Orders Name Type Priority Associated Diagnoses Orde r Schedule Comprehensive Metabolic Panel Lab Routine Class 3 severe obesity due to excess calories without serious comorbidity with body mass index (BMI) of 50.0 to 59.9 in adult Expected: 07/25/2025 (Approximate), Expires: 07/25/2026 Hemoglobin A1c Lab Routine Class 3 severe obesity due to excess calories without serious comorbidity with body mass index (BMI) of 50.0 to 59.9 in adult Expected: 07/25/2025 (Approximate), Expires: 07/25/2026 Lipid Panel, Standard Lab Routine Class 3 severe obesity due to excess calories without serious comorbidity with body mass index (BMI) of 50.0 to 59.9 in adult Mixed anxiety and depressive disorder Expected: 07/25/2025 (Approximate), Expires: 07/25/2026 documented as of this encounter Visit Diagnoses Diagnosis Class 3 severe obesity due to excess calories without serious comorbidity with body mass index (BMI) of 50.0 to 59.9 in adult (HCC)- Primary Mixed anxiety and depressive disorder Dysthymic disorder History of gestational diabetes Personal history of other genital system and obstetric disorders Encounter for immunization Primary hypertension Unspecified essential hypertension Tobacco dependence Tobacco use disorder Anxiety Anxiety state, unspecified documented in this encounter Additional Health Concerns Assessment Noted Time PHQ-9 Depression Total Score: 5 07/25/20 25 11:42 AM EDT documented as of this encounter Care Teams Supervisor Paper Coating Relationship Specialty Start Date End Date Valorie Mcmillan NP [address] [place] [address] PCP - General Family Medicine 06/06/25 Zohreh Gutierrez Groundskeeping Maintenance WorkerDry Wall Installer 01/20/24 documented as of this encounter
--- OUTSIDE RECORDS SUMMARY | 2025-07-25 13:09 | XMS_ITS | Clinical Summary ---
Author Organization [facility] '[facility] Address [address] [place] [address] Care Team Providers Care Carpet Layer Name Role Phone Sherin Merritt MD Unavailable [phone] Art Bello MD Unavailable Eleanor Bearden MD Primary Care Provider [phone] Raúl Dumont MD Unavailable [phone] Kory Maynard MD Unavailable Carlita Thornton MD Unavailable [phone] Zaynab Walker MD Unavailable Wagner Allen MD Unavailable [phone] Leigh Ann Pillai MD Unavailable Wagner Allen MD Unavailable [phone] Leah Jones CNM Unavailable [phone] Source Comments Please note that some [...] so, obtain the minor's consent prior to disclosure.[facility] Allergies No known active allergies Medications [...] about your child you'd like help w the [facility]? Not on file 07/10/2023 Share good news [...] HIV SCREENING 2007 COVID-19 Vaccine ( season) 2025 12/17/2021, 01/04/2021, 12/14/2020 INFLUENZA (#1) 2025 NIRSEVIMAB VACCINES UNDER 8 MONTHS Aged Out No longer eligible b ased on patient's age to complete this topic Insurance [facility] MEDICAID Care Teams Carpet Layer Relationship Specialty Start Date End Date Eleanor Bearden MD [address] [place] [phone] PCP - General Family Medicine 05/27/23 Sherin Merritt MD [address] [place] [address] 05/27/23 Art Bello MD [address] [place] [address] Maternal and Medicine 05/27/23 Raúl Dumont MD [address] [place] [phone] Consulting Physician Pediatric Surgery 05/28/23 Kory Maynard MD [address] [place] [address] Consulting Physician Neurosurgery 05/28/23 Carlita Thornton MD [address] [place] [phone] Consulting Physician Maternal and Medicine 05/28/23 Zaynab Walker MD [address] [place] [phone] Consulting Physician Urology 05/28/23 Wagner Allen MD [address] [place] [address] Consulting Physician Cardiology 05/29/23 Leigh Ann Pillai MD [address] [place] [phone] Consulting Physician Neonatology 05/29/23 Wagner Allen MD [address] [place], [place] [phone] Consulting Physician Cardiology 06/11/23 Leah Jones CNM [address] [place] [phone] Certified Nurse Identifier Horse 06/11/23
--- OUTSIDE RECORDS SUMMARY | 2025-07-25 13:09 | XMS_ITS | Encounter Summary ---
Author Organization [employer] Address [address] [place] [address] [address] [place] [address] Care Team Providers Care Bid Analyst Name Role Phone Eleanor Bearden MD Primary Care Provider [phone] Valorie Mcmillan NP Primary Care Provider [phone] Reason for Visit * Reason Onset Date Comments triage pt 1 out of 2 07/13/2024 Encounter Details Date Type Department Care Team ([facility] st Contact Info) Description 07/13/2024 Telephone [facility] [address] [place], [place] [phone] Eleanor Bearden MD [address] [place], [place] [phone] triage pt 1 out of 2 Social [...] Description 08/21/2025 11:15 AM EDT Office Visit [facility] [address] [place] [address] Valorie Mcmillan NP [address] [place] [address] documented as of this encounter Visit Diagnoses Not on filedocumented in this encounter Additional Health Concerns Assessment Noted Time PHQ-9 Depression Total Score: 0 01/20/20 24 10:54 AM EDT documented as of this encounter Care Teams Bid Analyst Relationship Specialty Start Date End Date Eleanor Bearden MD [address] [place] [address] PCP - General Family Medicine 03/09/20 06/05/25 Valorie Mcmillan NP [address] [place] [address] PCP - General Family Medicine 06/06/25 Zohreh Gutierrez Skin Diving TeacherDistrict Operations Manager 01/20/24 documented as of this encounter
--- OUTSIDE RECORDS SUMMARY | 2025-07-25 13:09 | XMS_ITS | Encounter Summary ---
Author Organization [facility] Address [address] [place] [address] Care Team Providers Care Dental Hygiene Instructor Name Role Phone Unknown Primary Care Provider [phone] Art Bello MD Unavailable Bernadine Monique MD Unavailable [phone] Encounter Details Date Type Department Care Team (Late st Contact Info) Description 09/10/2023 Documentation [facility] [address] [place] [phone] Garland Mike MA [address] [place], [place] [phone] Social History Tobacco Use Types Packs/Day Years Used Date Smoking Tobacco: Never Assessed Comments Yes Sex and Gender Information Value Date Recorded Sex Assigned at Female 06/04/2023 11:46 AM EDT Legal Sex Female 11:40 AM EDT Gender Identity Female 06/09/2023 1:43 PM EDT Sexual Orientation Heterosexual (straight) 06/09 1:43 PM EDT documented as of this encounter Progress Notes * Garland Mike MA - 09/10/2023 10:16 AM ESTSummary: Peer Counselor Did not received pump. Call Acelleron with patient for status. documented in this encounter Plan of Treatment Not on file documented as of this encounter Visit Diagnoses Not on filedocumented in this encounter Care Teams Dental Hygiene Instructor Relationship Specialty Start Date End Date Unknown Unknow Provider Address PCP - General 06/04/23 Art Bello MD [address] [place] [address] Maternal and Medicine 08/06/23 Bernadine Monique MD [address] [place] [phone] Obstetrics and Gynecology 08/17/23 documented as of this encounter
--- OUTSIDE RECORDS SUMMARY | 2025-07-25 13:09 | XMS_ITS | Clinical Summary ---
Author Organization [facility] it Address [id number] [place] [phone] Care Team Providers Care Bench Examiner Name Role Phone Unavailable Primary Care Provider Unavailabl e Immunizations Immunization Administration Dates Next Due Pfizer SARS-CoV-2 COVID-19, [...] Cervical Cancer Screening: P ap Smear 2015 HPV Vaccines (1 - 3-dose SCD M series) 2021 Depression Screening 10/26/2024 COVID-19 Vaccine (4 - 2024-2 6 season) 2025 12/17/2021, 01/04/2021, 12/14/2020 Influenza Vaccine (#1) 2025 RSV Immunization Adult Patients (1 - 1-dose 75+ series) 2069 HIB Vaccines Aged Out No longer eligi [...] age to complete this topic Meningococcal B Vaccine Aged Out No l onger eligible based on patient's age to complete this topic Pneumococcal Vaccine: Pediatrics (0 to 5 Years) and At-Risk Patients (6 to 49 Years) Aged Out No longer eligible b ased on patient's age to complete this topic RSV Immunization Patients Under 20 months Aged Out No longer eligible b ased on patient's age to complete this topic Varicella Vaccines Aged Out No longer eligible based on patient's age to complete this topic
--- OUTSIDE RECORDS SUMMARY | 2025-07-25 13:09 | XMS_ITS | Encounter Summary ---
Author Organization [facility] Address [address] [place] [address] Care Team Providers Care Grocery Caddy Name Role Phone Unknown Primary Care Provider [phone] Art Bello MD Unavailable Bernadine Monique MD Unavailable Encounter Details Date Type Department Care Team (Late st Contact Info) Description 09/10/2023 Scanned Document [facility] [address] [place] [phone] Colton Duque CNM [address] [place] [address] Social History Tobacco Use Types Packs/Day Years [...] on filedocumented in this encounter Care Teams Grocery Caddy Relationship Specialty Start Date End Date Unknown Unknow Provider Address PCP - General 06/04/23 Art Bello MD [address] [place] [address] Maternal and Medicine 08/06/23 Bernadine Monique MD [address] [place], [place] [phone] Obstetrics and Gynecology 08/17/23 documented as of this encounter
--- OUTSIDE RECORDS SUMMARY | 2025-07-25 13:09 | XMS_ITS | Clinical Summary ---
Author Organization [employer] Address [address] [place] [address] 7 [place] [address] Care Team Providers Care Shoe Lining Fitter Name Role Phone Valorie Mcmillan NP Primary Care Provider [phone] Allergies No known active allergies Medications fluticasone (Flonase Allergy Relief) 50 MCG/ACT nasal spray Administer 2 sprays into affected nostril(s) at bed time. 021 Active albuterol 108 (90 Base) MCG/ACT inhalerIndicati ons:Moderate persistent asthma without complication Inhale 2 puffs every 4 (four) hours. 18 g 5 023 Active albuterol (2.5 MG/3ML) 0.083% nebulizer solutionIndicat ions:Moderate persistent asthma without complication Take 3 mL by nebulization every 6 (six) hours. 75 mL 5 023 Active Blood Pressure kitIndications: Elevated blood pressure reading 1 Units in the morning. 1 kit 023 Active Fluticasone-Chris meterol (Advair Diskus) 250-50 MCG/ACT aerosol powderIndicatio ns:Moderate persistent asthma without complication Inhale 1 puff 2 times daily. 60 each 5 024 Active lisinopril (Prinivil) 20 MG tablet Take 1 tablet (20 mg) by mouth Once per day. 30 tablet 11 025 2025 Active Tirzepatide-Catarino ght Management (Zepbound) 2.5 MG/0.5ML solution auto-injector Inject 0.5 mL (2.5 mg) under the skin 1 (one) time per week. 2 mL 3 Active nicotine (Nicoderm CQ) 14 MG/24HR patch Place 1 patch on the skin 1 (one) time each day at the same time. 30 patch 2024 Active lisinopril (Prinivil) 10 MG tablet Take 1 tablet (10 mg) by mouth Once per day. 30 tablet 11 2024 Discontinued Tirzepatide-Catarino ght Management (Zepbound) 2.5 MG/0.5ML solution auto-injector Inject 0.5 mL (2.5 mg) under the skin 1 (one) time per week. 2 mL 3 2024 Discontinued(R eorder (will not trigger notification to Pharmacy)) medroxyPROGESTE Darien (Depo-Provera) 150 MG/ML injection Inject 1 mL (150 mg) into the muscle every 3 (three) months. 1 mL 2024 Discontinued(S saskia effects) Active Problems Problem Noted Date Diagnosed Date History of gestational diabetes 07/25/2025 Assessment & Plan (07/25/2025 11:49 AM EDT): Encounter for immunization 07/25/2025 Assessment & Plan (07/25/2025 11:49 AM EDT): Orders: FLU VACCINE TRIVALENT [id number] (Fluarix) 19 yrs + Primary hypertension 07/25/2025 Assessment & Plan (07/25/2025 11:49 AM EDT): Tobacco dependence 07/25/2025 Assessment & Plan (07/25/2025 11:49 AM EDT): Anxiety 07/25/2025 Assessment & Plan (07/25/2025 11:49 AM EDT): Elevated blood pressure reading 11/21/2022 Assessment & [...] 01/31/2022 Mixed anxiety and depressive disorder 06/28/2013 Assessment & Plan (07/25/2025 11:49 AM EDT): Orders: Lipid Panel, Standard; Future Asthma 06/28/2013 Assessment & Plan (11/21/2022 4:22 PM EST): Current with mild exacerbation, will send steroid burst and refill controller/rescue inhalers, recommended f/u with PCP Allergic rhinitis 06/28/2013 Obesity 08/16/2012 Assessment & Plan (07/25/2025 11:49 AM EDT): Orders: Comprehensive Metabolic Panel; Future Hemoglobin A1c; Future Lipid Panel, Standard; Future Encounters Date Type Department Care Team Description 07/25/2025 11:00 AM EDT Office Visit [facility] [address] [place] [address] Valorie Mcmillan NP Class 3 severe obesity due to excess calories without serious comorbidity with body mass index (BMI) of 50.0 to 59.9 in adult (Primary Dx); Mixed anxiety and depressive disorder; History of gestational diabetes; Encounter for immunization; Primary hypertension; Tobacco dependence; Anxiety 07/25/2025 Travel 07/18/2025 Travel 07/17/2025 Patient Outreach [facility] [address] [place] [address] Valorie Mcmillan NP Pre-visit Planning ([facility] unable to reach, no LVM ) 05/08/2025 Telephone [facility] [address] [place] [address] Jaylin Fry CNM chart prep 05/03/2025 Telephone [facility] [address] [place] [address] Eleanor Bearden MD Nurse Triage 04/24/2025 Telephone [facility] [address] [place] [address] Eleanor Bearden MD Transfer doctor 04/24/2025 Telephone [facility] [address] [place] [address] Eleanor Bearden MD No Show from Last 3 Months Immunizations Immunization Administration Dates Next Due DTP 03/05/1998, 5,1994,06/10,1994 HPV, Quadrivalent 05/09/2008,02/08/2008,11/02/19 08 Hep B, Adolescent or Pediatric 1994,1993,1994 Hib ([facility]) 05/20/1995, 4,1994,04/10 IPV 03/05/1998, 4,1994,03/31 Influenza injectable quadriv alent preservative free 07/31/2021 Influenza, IIV3, injectable 07/31/2023 Influenza, Split (incl. lola fied surface antigen) 08/16/2012 Influenza, seasonal, injecta ble, preservative free 07/25/2025 MMR 03/05/1998,02/10/1995 Meningococcal MPSV4 04/24/2009 Pfizer Covid-19 Vaccine 12+ 12/17/2021,,12/14/2020 Tdap 07/31/2023,10/04/2019,02/13/2006 Social History Tobacco Use Types [...] Mass Index 55.15 07/25/2025 11:11 AM EDT Plan of Treatment Upcoming Encounters Date Type Department Care Team (Late st Contact Info) Description 08/21/2025 11:15 AM EDT Office Visit [facility] [address] [place] [address] Valorie Mcmillan, [place] [address] [place] [address] Health Maintenance Due Date Last Done Comments Family Planning (PISQ) 2009 Hepatitis C Screening 02/08/2012 Pneumococcal Vaccine: Pediatrics (0 to 5 Years) and At-Risk Patients (6 to 49) Years (1 of 2 - PCV) 2013 COVID-19 Vaccine ( season) 2025 12/17/2021, 01/04/2021, 12/14/2020 Cervical Cancer Screening 03/10/2026 HPV/Cotest 03/10/2026 Pap Smear 03/10/2026 03/10/2023 Disability Screening 07/18/2026 07/18/2025 Alcohol/Substance Use Screening 07/25/2026 07/25/2025 Depression Screening 07/25/2026 07/25/2025, 07/25/20 25 SDOH Screening 07/25/2026 07/25/2025 Tobacco Screening 07/25/2026 07/25/2025 Lipid Panel 01/26/2030 01/26/2025, 08/07/2021 DTaP/Tdap/Td Vaccines (9 - Td or [...] on patient's age to complete this topic HIV Screening Completed 09/10/2023 Influenza Vaccine Completed 07/25/2025, , 07/31/2021, Additional history exists Hepatitis A Vaccines Aged Out No long [...] Associated Diagnosis Comments LIPID PANEL, STANDARD Routine 01/26/2025 11:16 AM EDT Primary hypertension PAP SMEAR Routine 03/10/2023 12:00 AM EDT from Last 3 Months or Most Recently Relevant to Health Maintenance Results * (ABNORMAL) Lipid Panel, Standard (01/26/2025 11:16 AM EDT) Triglycerides 193(H) <150 mg/dL [facility] Comment:Desirable Triglyceri de: less than 150 mg/dLBorderline High Triglyceride 150-199 mg/dLHigh Triglyceride: 200-499 mg/dLVery High Triglyceride: greater than or equal to 5OO mg/dL Cholesterol 205(H) <200 mg/dL [facility] Comment:Desirable Cholestero l: less than 200 mg/dLBorderline High Cholesterol: 200-239 mg/dLHigh Cholesterol: greater than 239 mg/dL LDL Cholesterol Calculated 122(H) <100 mg/dL [facility] Comment:Desirable LDL: less than 100 mg/dLNear Optimal/Above Optimal LDL: 110- 129 mg/dLBorderline High LDL: 130-159 mg/dLHigh LDL: 160-189 mg/dLVery High LDL: greater than or equal to 190 mg/dL HDL Cholesterol 45 >40 mg/dL [facility] Comment:Desirable HDL: great er than 40 mg/dL Note: This HDL assay may give artificially low results in patients with liver disease. Blood Venous blood specimen / Unknown 01/26/2025 11:16 AM EDT 01/26/2025 2:04 PM EDT us Eleanor Bearden MD LAB BLOOD ORDERABLES Final Resul t [facility] [address] [place] [phone] * Pap Smear (03/10/2023 12:00 AM EDT) Swab us Historical Provider MD LAB CYTOLOGY ORDERABLES F inal Result EXTERNAL LAB from Last 3 Months or Most Recently Relevant to Health Maintenance Insurance [employer] C3 Care Teams Shoe Lining Fitter Relationship Specialty Start Date End Date Valorie Mcmillan NP [address] [place] [address] PCP - General Family Medicine 06/06/25 [facility] CoordinatorTour Agent 01/20/24
--- OUTSIDE RECORDS SUMMARY | 2025-07-25 13:09 | XMS_ITS | Encounter Summary ---
Author Organization [employer] Address [address] [place] [address] [address] [place] [address] Care Team Providers Care Curer Foam Rubber Name Role Phone Valorie Mcmillan NP Primary Care Provider [phone] Encounter Details Date Type Department Care Team (Latest Contact Info) Description 07/25/2025 Travel Social History Tobacco Use Types Packs/Day Years [...] PM EDT documented as of this encounter Functional Status * Over the past 2 weeks, how often have you been bothered by any of the following problems? Question Answer Date of Assessment Author Patient Health Questionnaire -2 Score 2 07/25/2025 11:42 AM Arahs Anderson MA * Little interest or pleasure in [...] or on edge 1 07/25/2025 11:42 AM Arash Anderson MA Not being able to stop or co ntrol worrying 2 07/25/2025 11:42 AM Arash Anderson MA Worrying too much about diff erent things 1 07/25/2025 11:42 AM Arash Anderson MA Trouble relaxing 1 07/25/2025 11:42 AM Arash Anderson MA Being so restless that it is hard to sit still 1 07/25/2025 11:42 AM Arash Anderson MA Becoming easily annoyed or irritable 1 07/25/2025 11:42 AM Arash Anderson MA Feeling afraid as if somethi ng awful might happen 1 07/25/2025 11:42 AM Arash Anderson MA GISELLA-7 Total Score 8 07/25/2025 11:42 AM Arash Anderson MA documented as of this encounter Plan of Treatment Upcoming Encounters Date Type Department Care Team (Late st Contact Info) Description 08/21/2025 11:15 AM EDT Office Visit [facility] [address] [place] [address] Valorie Mcmillan NP [address] [place] [address] documented as of this encounter Visit Diagnoses Not on filedocumented in this encounter Additional Health Concerns Assessment Noted Time PHQ-9 Depression Total Score: 5 07/25/20 25 11:42 AM EDT documented as of this encounter Care Teams Curer Foam Rubber Relationship Specialty Start Date End Date Valorie Mcmillan NP [address] [place] [address] PCP - General Family Medicine 06/06/25 Zohre[facility] Gutierrez Dining Car ServerInventory Management Specialist 01/20/24 documented as of this encounter
--- OUTSIDE RECORDS SUMMARY | 2025-07-25 13:09 | XMS_ITS | Encounter Summary ---
Author Organization [facility] Address [address] [place] [address] Care Team Providers Care Advertiser Name Role Phone Unknown Primary Care Provider [phone] Art Bello MD Unavailable Bernadine Monique MD Unavailable [phone] Encounter Details Date Type Department Care Team (Late st Contact Info) Description 08/27/2023 Documentation [facility] [address] [place] [phone] Garland Mike MA [address] [place], [place] [phone] Social History Tobacco Use Types Packs/Day Years [...] Garland Mike MA - 08/27/2023 11:09 AM EDTSumarmaan: Peer Counselor Discussed with patient the benefits of BF, benefits of skin to skin, benefits of rooming-in. Patient is still contemplating feeding plan but is leaning more towards combo feeding for baby boy that will be going directly to NICU after for a surgery. Gave patient my information for additional support. [facility] documented in this encounter Plan of Treatment Not on file documented as of this encounter Visit Diagnoses Not on filedocumented in this encounter Care Teams Advertiser Relationship Specialty Start Date End Date Unknown Unknow Provider Address PCP - General 06/04/23 Art Bello MD [address] [place] [address] Maternal and Medicine 08/06/23 Bernadine Monique MD [address] [place] [address] Obstetrics and Gynecology 08/17/23 documented as of this encounter
--- OUTSIDE RECORDS SUMMARY | 2025-07-25 13:09 | XMS_ITS | Clinical Summary ---
Author Organization [facility] Address [address] [place] [address] Care Team Providers Care Tag And Label Cutter Name Role Phone Unknown Primary Care Provider [phone] Art Bello MD Unavailable Bernadine Monique MD Unavailable [phone] Allergies No known active allergies Medications vitamin with iron and folic acid ( PLUS) 27-1 MG Tab tablet Take 1 tablet by mouth daily. 3 Active Advair Diskus 250-50 MCG/ACT diskus inhaler INHALE 1 PUFF BY MOUTH 2 TIMES DAILY 3 Active acetaminophen (TYLENOL) 500 MG tabletIndications : care following delivery Take 1 tablet (500 mg total) by mouth 4 times daily (every 6 hours) as needed for mild pain. 30 tablet 3 Active ibuprofen (MOTRIN) 600 MG tabletIndications : care following delivery Take 1 tablet (600 mg total) by mouth 4 times daily (every 6 hours) as needed for mild pain. 30 tablet 3 Active polyethylene glycol (miraLAx) 17 g packetIndications : care following delivery Take 1 packet (17 g total) by mouth daily. 30 packet 3 Active senna-docusate (SENNA-S) 8.6-50 MGIndications:Pos tpartum care following delivery Take 1 tablet by mouth daily. 30 tablet 3 Active NIFEdipine (PROCARDIA XL) 30 MG 24 hr tabletIndications :Chronic hypertension Take 2 tablets (60 mg total) by mouth daily. 30 tablet 1 4 Active Active Problems Problem Noted Date Diagnosed Date Chronic hypertension affecting 023 Elevated blood pressure affecting , ant epartum 08/26/2023 Overview (08/27/2023): Patient with diagnosis of cHTN, prior Bps elevated from [facility] 02/09/2023 (4w6d) Seen in triage on 08/26 for elevated blood pressures noted at [facility] NST. Normal PEP and P/C TLTC 08/27/2023: Procardia 30 XL daily started, blood pressure cuff at home Assessment & Plan (09/24/2023 11:04 AM EST): - Patient with chronic hypertension; following with [facility] for NSTs. - Blood pressures above [...] 11:41 AM EDT): - Scheduled for RLTCS / at 38w1d Assessment & Plan (08/06/2023 11:16 [...] Tdap as well as RSV vaccine at [facility] prior to transfer -Confirm plans for [...] more drinks on one occasion? Never 09/25/2023 Comments No Sex and Gender Information Value Date Recorded Sex Assigned at Female 06/04/2023 11:46 AM EDT Legal Sex Female 11:40 AM EDT Gender Identity Female 06/09/2023 1:43 PM EDT Sexual Orientation Heterosexual (straight) 06/09 1:43 PM EDT Last Filed Vital Signs Vital Sign Reading Time Taken Comments Blood Pressure 151/100 12/22/2023 9:30 AM EST Pulse 104 12/22/2023 9:00 AM EST Temperature 37 C (98.6 F) 09/29/2023 7:45 AM EST Respiratory Rate 16 [...] - 19+ 3-dose series) 2013 Pneumococcal Vaccine: Pediat iliana (0-5 Years) and At-Risk Patients (6 to 49 Years) (1 of 2 - PCV) 2013 Pap Smear (Ages 21-65) 2015 Influenza Vaccine 05/26/2025 07/31/2023, , 08/16/2012 COVID-19 Vaccine ( season) 2025 12/17/2021, 01/04/2021, 12/14/2020 HIV Screening Completed 09/10/2023 HPV Vaccines (No Doses Required) Completed Procedures Procedure Name Priority Date/Time Associated Diagnosis Comments HIV 1/2 AG/AB CMIA REFLEX TO CONFIRMATION Routine 09/10/2023 11:02 AM EST Third trimester from Last 3 Months or Most Recently Relevant to Health Maintenance Results * HIV 1/2 Ag/Ab CMIA Reflex to Confirmation (09/10/2023 11:02 AM EST) HIV 1/2 Ag/Ab CMIA Nonreactive Nonreactive 09/11/2023 10:33 AM EST [facility] Comment: Results show no evidence of infection by HIV 1/2. If clinically indicated, repeat CMIA or test by nucleic acid amplification. HIV 1/2 Antigen/Antibody CMIA reflex to confirmation AND HIV-1 RNA viral load recommended in patients who are taking or have recently taken PrEP. Blood specimen (specimen) Serum specimen / Unknown 09/10/2023 11:02 AM EST 09/10/2023 2:29 PM EST us Loni Montoya DO LAB BLOOD ORDERABLES Final Res ult [facility] [address] [place] [address], from Last 3 Months or Most Recently Relevant to Health Maintenance Insurance [address] [place] [address] [facility] Advance Directives * Full Code (Latest Code Status on File) Date Activated Date Inactivated Comments 09/25/2023 3:58 PM * Full Code Date Activated Date Inactivated Comments 09/14/2023 10:30 AM 09/25/2023 10:44 AM * Full Code Date Activated Date Inactivated Comments 08/26/2023 10:25 AM 09/14/2023 10:13 AM Care Teams Tag And Label Cutter Relationship Specialty Start Date End Date Unknown Unknow Provider Address PCP - General 06/04/23 Art Bello MD [address] [place] [address] Maternal and Medicine 08/06/23 Bernadine Monique MD [address] [place] [address] Obstetrics and Gynecology 08/17/23
[2025-07-25 13:54] LABS: Hemoglobin A1C 127.2628 umol/L; Total Hemoglobin (HGBA1C) 2861.8587 umol/L
[2025-07-25 14:12] LABS: Alanine Aminotransferase 35 U/L (0-31); Albumin Level 4.3 g/dL (3.5-5.0); Alkaline Phosphatase 54 U/L (39-117); Anion Gap 10 (12-20); Aspartate Amino Transferase 31 U/L (5-31); Blood Urea Nitrogen 10 mg/dL (9-16); Calcium 8.8 mg/dL (8.4-10.2); Carbon Dioxide 26 mmol/L (22-29); Chloride 108 mmol/L (96-108); Cholesterol 178 mg/dL (<200); Estimated Glomerular Filt Rate > 60; HDL Cholesterol 36 mg/dL (>40); Potassium 3.7 mmol/L (3.3-5.1); Sodium 140 mmol/L (135-145); Total Protein 7.6 g/dL (6.5-8.0); Triglycerides 215 mg/dL (<150)
== END 2025-07-25 11:46 | disposition home or self-care (01) ==
LOC: HO.HHCL 11:45
PROVIDERS: PCP Nurse Practitioner Family; Visit Provider Nurse Practitioner Family
DX: E66.813 Obesity, class 3 (principal); Z68.43 Body mass index [BMI] 50.0-59.9, adult; F41.8 Other specified anxiety disorders
CPT/HCPCS: 36415; 80053; 80061; 83036

== ENCOUNTER 2025-08-09 08:14 | Outpatient (AMB) | payer MEDICAID, SELFPAY ==
--- OUTSIDE RECORDS SUMMARY | 2025-08-09 08:28 | XMS_ITS | Clinical Summary ---
Author Organization [employer] Address [address] [place] [address] 7 [place] [address] Care Team Providers Care Automobile And Property Underwriter Name Role Phone Valorie Mcmillan NP Primary Care Provider [phone] Allergies No known active allergies Medications fluticasone [...] 11:49 AM EDT): Orders: FLU VACCINE TRIVALENT [id number] (Fluarix) 19 yrs + Primary hypertension 07/25/2025 [...] Encounters Date Type Department Care Team Description 07/28/2025 Telephone [facility] [address] [place] [address] Valorie Mcmillan NP Prior Authorization 07/25/2025 11:00 AM EDT Office Visit [facility] [address] [place] [address] Valorie Mcmillan NP Class 3 severe obesity due to excess calories without serious comorbidity with body mass index (BMI) of 50.0 to 59.9 in adult (Primary Dx); Mixed anxiety and depressive disorder; History of gestational diabetes; Encounter for immunization; Primary hypertension; Tobacco dependence; Anxiety 07/25/2025 Travel 07/18/2025 Travel 07/17/2025 Patient Outreach [facility] [address] [place] [address] Valorie Mcmillan NP Pre-visit Planning (SDOH unable to reach, no LVM ) from Last 3 Months Immunizations Immunization Administration [...] Description 08/21/2025 11:15 AM EDT Office Visit [facility] [address] [place] [address] Valorie Mcmillan NP [address] [place] [address] Health Maintenance Due Date Last Done Comments [...] 07/25/2025 Depression Screening 07/25/2026 07/25/2025, 07/25/20 25 Diabetes: Hemoglobin A1C 07/25/2026 07/25/2025 SDOH Screening 07/25/2026 07/25/2025 Tobacco Screening 07/25/2026 07/25/2025 Lipid Panel 07/25/2030 07/25/2025, 04/0 12/2024, 08/07/2021 DTaP/Tdap/Td Vaccines (9 - Td or [...] Associated Diagnosis Comments LIPID PANEL, STANDARD Routine 07/25/2025 11:56 AM EDT Class 3 severe obesity due to excess calories without serious comorbidity with body mass index (BMI) of 50.0 to 59.9 in adult Mixed anxiety and depressive disorder HEMOGLOBIN A1C Routine 07/25/2025 11:56 AM EDT Class 3 severe obesity due to excess calories without serious comorbidity with body mass index (BMI) of 50.0 to 59.9 in adult COMPREHENSIVE METABOLIC PANEL Routine 07/25/2025 11:56 AM EDT Class 3 severe obesity due to excess calories without serious comorbidity with body mass index (BMI) of 50.0 to 59.9 in adult PAP SMEAR Routine 03/10/2023 12:00 AM EDT from Last 3 Months or Most Recently Relevant to Health Maintenance Results * (ABNORMAL) Hemoglobin A1c (07/25/2025 11:56 AM EDT) Hemoglobin A1c 6.2(H) <6.0 % [facility] Comment:Hemoglobin A1C Refer ence Range Adults: 4.8 - 6.0 % Non diabetic: < 6.0 % Goal: < 7.0 %Additional Action Suggested: > 8.0 %Note: Hemoglobin A1c results are invalid for patients with abnormal amounts of HbF. Blood transfusions may impact the HbA1c concentration in the patient sample. Estimated Average Glucose 131 mg/dL [facility] Comment:eAG = Estimated ave rage glucose which is %A1C expressed asaverage glucose, using the formula of the Z6E-ZsoakopSaetezp Glucose study (ADAG), Diabetes Care, Vol.31,#8,May. 2007 Blood Venous blood specimen / Unknown 07/25/2025 11:56 AM EDT 07/25/2025 1:32 PM EDT us Valorie Mcmillan NP LAB BLOOD ORDERABLES Final Resul t [facility] [address] [place] [phone] * (ABNORMAL) Lipid Panel, Standard (07/25/2025 11:56 AM EDT) Triglycerides 215(H) <150 mg/dL [facility] Comment:Desirable Triglyceri de: less than 150 mg/dLBorderline High Triglyceride 150-199 mg/dLHigh Triglyceride: 200-499 mg/dLVery High Triglyceride: greater than or equal to 5OO mg/dL Cholesterol 178 <200 mg/dL [facility] Comment:Desirable Cholestero l: less than 200 mg/dLBorderline High Cholesterol: 200-239 mg/dLHigh Cholesterol: greater than 239 mg/dL LDL Cholesterol Calculated 99 <100 mg/dL [facility] Comment:Desirable LDL: less than 100 mg/dLNear Optimal/Above Optimal LDL: 110- 129 mg/dLBorderline High LDL: 130-159 mg/dLHigh LDL: 160-189 mg/dLVery High LDL: greater than or equal to 190 mg/dL HDL Cholesterol 36(L) >40 mg/dL [facility] Comment:Desirable HDL: great er than 40 mg/dL Note: This HDL assay may give artificially low results in patients with liver disease. Blood Venous blood specimen / Unknown 07/25/2025 11:56 AM EDT 07/25/2025 1:42 PM EDT us Valorie Mcmillan NP LAB BLOOD ORDERABLES Final Resul t [facility] [address] [place] [phone] * (ABNORMAL) Comprehensive Metabolic Panel (07/25/2025 11:56 AM EDT) Sodium 140 135 - 145 mmol/L [facility] Potassium 3.7 3.3 - 5.1 mmol/L [facility] Chloride 108 96 - 108 mmol/L [facility] Carbon Dioxide 26 22 - 29 mmol/L [facility] Anion Gap 10(L) 12 - 20 [facility] Urea Nitrogen (BUN) 10 9 - 16 mg/dL [facility] Creatinine, Serum 0.64 0.5 - 1.4 mg/dL [facility] Estimated Glomerular Filt Rate >60 [facility] Comment:Chronic Kidney Disea se: Estimated GFR < 60 mL/min/1.94f0Upzysr Kidney Disease: Estimated GFR < 15 mL/min/1.73m2 Glucose 141(H) 60 - 115 mg/dL [facility] Calcium 8.8 8.4 - 10.2 mg/dL [facility] Bilirubin, Total 0.7 0.0 - 1.0 mg/dL [facility] Aspartate Amino Transferase 31 5 - 31 U/L [facility] Alanine Aminotransferase 35(H) 0 - 31 U/L [facility] Total Protein 7.6 6.5 - 8.0 g/dL [facility] Albumin Level 4.3 3.5 - 5.0 g/dL [facility] Alkaline Phosphatase 54 39 - 117 U/L [facility] Blood Venous blood specimen / Unknown 07/25/2025 11:56 AM EDT 07/25/2025 1:42 PM EDT Valorie Mcmillan NP LAB BLOOD ORDERABLES Final Resul t [facility] [address] [place] [address] [phone] * Pap Smear (03/10/2023 12:00 AM EDT) Swab us Historical Provider MD LAB CYTOLOGY ORDERABLES F inal Result EXTERNAL LAB from Last 3 Months or Most Recently Relevant to Health Maintenance Insurance [facility] C3 Care Teams Automobile And Property Underwriter Relationship Specialty Start Date End Date Valorie Mcmillan NP [address] [place] [address] PCP - General Family Medicine 06/06/25 Zohreh Gutierrez Nurse InformaticistSolar Pool Heating Installer 01/20/24
--- OUTSIDE RECORDS SUMMARY | 2025-08-09 08:28 | XMS_ITS | Encounter Summary ---
Author Organization [facility] Address [address] [place] [address] Care Team Providers Care Cereal Miller Name Role Phone Unknown Primary Care Provider [phone] Art Bello MD Unavailable Bernadine Monique MD Unavailable [phone] Encounter Details Date Type Department Care Team (Late st Contact Info) Description 09/10/2023 Documentation [facility] [address] [place] [phone] Garland Mike MA [address] [place], [place] [phone] Social History Tobacco Use Types Packs/Day Years [...] on filedocumented in this encounter Care Teams Cereal Miller Relationship Specialty Start Date End Date Unknown Unknow Provider Address PCP - General 06/04/23 Art Bello MD [address] [place] [address] Maternal and Medicine 08/06/23 Bernadine Monique MD [address] [place] [address] Obstetrics and Gynecology 08/17/23 documented as of this encounter
--- OUTSIDE RECORDS SUMMARY | 2025-08-09 08:28 | XMS_ITS | Encounter Summary ---
Author Organization [employer] Address [address] [place] [address] 7 [place] [address] Care Team Providers Care Vehicle Maintenance Technician Name Role Phone Eleanor Bearden MD Primary Care Provider Valorie Mcmillan NP Primary Care Provider [phone] Reason for Visit * Reason Onset Date Comments triage pt 1 out of 2 07/13/2024 Encounter Details Date Type Department Care Team ([facility] st Contact Info) Description 07/13/2024 Telephone [facility] [address] [place], [place] [phone] Eleanor Bearden MD [address] [place], [place] [phone] triage pt 1 out of 2 Social [...] Description 08/21/2025 11:15 AM EDT Office Visit [facility] [address] [place] [address] Valorie Mcmillan NP [address] [place] [address] documented as of this encounter Visit Diagnoses Not on filedocumented in this encounter Additional Health Concerns Assessment Noted Time PHQ-9 Depression Total Score: 0 01/20/20 24 10:54 AM EDT documented as of this encounter Care Teams Vehicle Maintenance Technician Relationship Specialty Start Date End Date Eleanor Bearden MD [address] [place] [address] PCP - General Family Medicine 03/09/20 06/05/25 Valorie Mcmillan NP [address] [place] [address] PCP - General Family Medicine 06/06/25 Zohreh Gutierrez Content DeveloperHook And Eye Attacher 01/20/24 documented as of this encounter
--- OUTSIDE RECORDS SUMMARY | 2025-08-09 08:28 | XMS_ITS | Clinical Summary ---
Author Organization [facility] Address [address] [place] [address] Care Team Providers Care Medical Oncologist Name Role Phone Sherin Merritt MD Unavailable [phone] Art Bello MD Unavailable Eleanor Bearden MD Primary Care Provider [phone] Raúl Dumont MD Unavailable [phone] Kory Maynard MD Unavailable Carlita Thornton MD Unavailable [phone] Zaynab Walker MD Unavailable Wagner Allen MD Unavailable [phone] Leigh Ann Pillai MD Unavailable Wagner Allen MD Unavailable [phone] Leah Jones CNM Unavailable [phone] Source Comments Please note that some [...] so, obtain the minor's consent prior to disclosure.[facility] No known active allergies Medications [...] about your child you'd like help w [facility]? Not on file 07/10/2023 Share good news [...] patient's age to complete this topic Insurance [facility] MEDICAID Care Teams Medical Oncologist Relationship Specialty Start Date End Date Eleanor Bearden MD [address] [place] [phone] PCP - General Family Medicine 05/27/23 Sherin Merritt MD [address] [place] [address] 05/27/23 Art Bello MD [address] [place] [address] Maternal and Medicine 05/27/23 Raúl Dumont MD [address] [place] [phone] Consulting Physician Pediatric Surgery 05/28/23 Kory Maynard MD [address] [place] [phone] Consulting Physician Neurosurgery 05/28/23 Carlita Thornton MD [address] [place] [phone] Consulting Physician Maternal and Medicine 05/28/23 Zaynab Walker MD [address] [place] [address] Consulting Physician Urology 05/28/23 Wagner Allen MD [address] [place] [address] Consulting Physician Cardiology 05/29/23 Leigh Ann Pillai MD [address] [place] [address] Consulting Physician Neonatology 05/29/23 Wagner Allen MD [address] [place], [place] [phone] Consulting Physician Cardiology 06/11/23 Leah Jones CNM [address] [place] [address] Certified Nurse Parking Worker 06/11/23
--- OUTSIDE RECORDS SUMMARY | 2025-08-09 08:28 | XMS_ITS | Clinical Summary ---
Author Organization [facility] it Address [id number] [place] [phone] Care Team Providers Care Clothes Marker Name Role Phone Unavailable Primary Care Provider [...]
--- OUTSIDE RECORDS SUMMARY | 2025-08-09 08:28 | XMS_ITS | Encounter Summary ---
Author Organization [facility] Address [address] [place] [address] Care Team Providers Care Cub Reporter Name Role Phone Unknown Primary Care Provider [phone] -[phone] Art Bello MD Unavailable Bernadine Monique MD Unavailable Encounter Details Date Type Department Care Team (Late st Contact Info) Description 08/27/2023 Documentation [facility] [address] [place] [phone] Garland Mike MA [address] [place], [place] [phone] Social History Tobacco Use Types Packs/Day Years [...] support. Breast Pump [facility] documented in this encounter Plan of Treatment Not on file documented as of this encounter Visit Diagnoses Not on filedocumented in this encounter Care Teams Cub Reporter Relationship Specialty Start Date End Date Unknown Unknow Provider Address PCP - General 06/04/23 Art Bello MD [address] [place] [address] Maternal and Medicine 08/06/23 Bernadine Monique MD [address] [place] [address] Obstetrics and Gynecology 08/17/23 documented as of this encounter
--- OUTSIDE RECORDS SUMMARY | 2025-08-09 08:28 | XMS_ITS | Encounter Summary ---
Author Organization [facility] Address [address] [place] [address] Care Team Providers Care Paediatric Thoracic Physician Name Role Phone Unknown Primary Care Provider [phone] -[phone] Art Bello MD Unavailable Bernadine Monique MD Unavailable [phone] Encounter Details Date Type Department Care Team (Late st Contact Info) Description 09/10/2023 Scanned Document [facility] [address] [place] [phone] Colton Duque CNM [address] [place] [address] Social History Tobacco Use Types Packs/Day Years [...] on filedocumented in this encounter Care Teams Paediatric Thoracic Physician Relationship Specialty Start Date End Date Unknown Unknow Provider Address PCP - General 06/04/23 Art Bello MD [address] [place] [address] Maternal and Medicine 08/06/23 Bernadine Monique MD [address] [place], [place] [phone] Obstetrics and Gynecology 08/17/23 documented as of this encounter
--- OUTSIDE RECORDS SUMMARY | 2025-08-09 08:29 | XMS_ITS | Clinical Summary ---
Author Organization [facility] Address [address] [place] [address] Care Team Providers Care Job Hand Name Role Phone Unknown Primary Care Provider [phone] Art Bello MD Unavailable Bernadine Monique MD Unavailable [phone] Allergies No known active allergies Medications vitamin [...] diagnosis of cHTN, prior Bps elevated from [facility] 02/09/2023 (4w6d) Seen in triage on 08/26 for elevated blood pressures noted at [facility] NST. Normal PEP and P/C TLTC 08/27/2023: Procardia 30 XL daily started, blood pressure cuff at home Assessment & Plan (09/24/2023 11:04 AM EST): - Patient with chronic hypertension; following with [facility] for NSTs. - Blood pressures above target [...] Tdap as well as RSV vaccine at [facility] prior to transfer -Confirm plans for [...] CMIA Nonreactive Nonreactive 09/11/2023 10:33 AM EST [facility] Comment: Results show no evidence [...] DO LAB BLOOD ORDERABLES Final Res ult [facility] [address] [place] [address], from Last 3 Months or Most Recently Relevant to Health Maintenance Insurance [address] [place] [phone] [facility] Advance Directives * Full Code (Latest Code Status on File) Date Activated Date Inactivated Comments 09/25/2023 3:58 PM * Full Code Date Activated Date Inactivated Comments 09/14/2023 10:30 AM 09/25/2023 10:44 AM * Full Code Date Activated Date Inactivated Comments 08/26/2023 10:25 AM 09/14/2023 10:13 AM Care Teams Job Hand Relationship Specialty Start Date End Date Unknown Unknow Provider Address PCP - General 06/04/23 Art Bello MD [address] [place] [address] Maternal and Medicine 08/06/23 Bernadine Monique MD [address] [place] [address] Obstetrics and Gynecology 08/17/23
--- NOTE | 2025-08-09 10:18 | A.OFFVIS_ITS ---
VS Expanded 08/09/25 10:24 Height 5 ft 4 in Weight 327 lb 2 oz BMI 56.1 Body Fat % 50.7 Body Fat Mass 166 Fat Free Mass 161.2 Visceral Fat Rating 18 Body Water % 35.4 Body Water Mass 115.8 Basal Metabolic Rate/Score 2,369 Intake Visit Reasons: TV HEALTHCARE MANAGEMENT CONSULTANT SWL/MWL BMI 56.2 Allergies No Known Allergies Allergy (Verified 08/09/25 10:18) Medication List - Last Reconciled 08/09/25 by Mahin Lovell MD albuterol sulfate 90 mcg/actuation (Proventil HFA) 2 puffs inhalation QID fluticasone propion-salmeterol 250-50 mcg/dose (Wixela Inhub) 1 inh inhalation BID 30 days lisinopril 20 mg PO DAILY HPI HPI TV HEALTHCARE MANAGEMENT CONSULTANT SWL/MWL BMI 56.2: Details: Start time: 10.10am, End time: 10.45am ?I spent 30 minutes speaking with the patient on the phone plus an additional 5 minutes reviewing and updating records for a total of 35 minutes HPI Comments Details: Previous weight loss efforts: self diets, exercise, WW, Zepbound Wakes up: 6.30am, Sleeps: 11pm Breakfast: 7am (boiled eggs) Lunch: 12pm (sandwich) Dinner: 5pm (rice, beans, pork chops) Snacks:4pm (chips) Exercise: has home treadmill (no incline, tracks calories) Beverages: Coffee (2 cups/d with cream and sugar), Tea: none, Soda/Juice/ETOH: none PFSH Medical History (Updated 08/09/25 @ 10:20 by Mahin Lovell MD) Hypertension Morbid obesity Surgical History (Updated 07/24/25 @ 13:20 by Tanya Rodriguez CMA) Hx of section Family History (Updated 07/24/25 @ 13:25 by Tanya Rodriguez CMA) Mother Diabetes Hypertension Father No problems noted. Social History (Updated 07/24/25 @ 13:34 by Tanya Rodriguez CMA) Alcohol intake: current Alcohol intake frequency: holidays/special occasions only Patient Tobacco Use Status: Former Tobacco user Years Smoked: 12 yrs Telehealth Telehealth Telehealth Platform: Telephone Location of provider rendering services: practice address Location of patient: address on file Patient Identification confirmed using: Name, : Yes Telehealth method: voice only Patient verbally consented to treatment: Yes Patient verbally consented to billing insurance company: Yes Patient informed of any privacy concerns related to visit: Yes Minutes spent on Phone/Video with Pt.: 35 Assessment & Plan Assessment & Plan (1) Morbid obesity: Code(s): E66.01 - Morbid (severe) obesity due to excess calories Category: Medical Plan: 1.? Plan for lap sleeve gastrectomy. If diaphragmatic or ventral hernias are present at time of surgery, these will be repaired laparoscopically as well. I emphasized the importance of close follow-up, adherence to instructions and good communication. The surgery does not replace the need to change your lifestlyle which is the cause of the obesity problem. The surgery provides the motivation to try again to change your lifestyle, it reduces the appetite and make the transition to a better lifestyle easier and doubles the amount of weight you would lose compared to doing the lifestyle change without the surgery. You will need to be on a liquid diet with protein shakes for 2 weeks before surgery to maximize weight loss and boost your nutritional status to recover better from surgery and also for the first two weeks after surgery to let the stomach heal before we introduce other foods. After the first 2 weeks we will introduce protein bars and soft foods like scrambled eggs, cottage cheese and yogurt and after the 6th week will introduce meat, fish and cooked vegetables in small amounts. Over time you should be able to eat everything in small amounts. Side effects like nausea, vomiting, heartburn or abdominal pain are not common in the practice unless you are not following in the practice. T his operation requires lifetime commitment to following in our practice and communication with me. You will much less weight and experience side effects if you don?t communicate or not following in the practice. Complications are rare and in our practice is about 1/10 of the national average. However, you can develop bleeding that may require transfusion (hasn?t happened for year in the practice), you may from complications (we did not have any deaths in the practice) and infections. Infections are usually a result of breakdown in communication or not understanding or following directions correctly. They are difficult to treat, they can happen during the first 6 weeks, they may require to be in the hospital for weeks or even months, not being able to eat by mouth and you may have drains and surgeries to try and correct the issue. Other risks and complications include possible conversion to an open procedure, leaks, small bowel obstruction, blood clots, cardiac, or pulmonary complications, as fdc complications such as ulcers, insufficient weight loss and vitamin deficiencies. 2. Nutritional counseling. Start with one premade PREMIER protein (buy at [employer] or [employer]) shake (8oz of Premier mixed and NOT the whole bottle) at 8am- 10am, one protein bar (Fit Crunch protein bar, buy at [employer], or [employer]) at 11am-1pm, another premade PREMIER protein shake (8oz of Premier mixed and NOT the whole bottle) at 2pm-4pm, dinner at 5pm (8 forks of protein and 8 forks of salad/vegetables) and another Fit Crunch protein bar at 7pm-9pm. If hungry, please do another HALF Fit Crunch protein bar at 10pm-11pm. So you do 2 protein shakes, 2 to 2.5 protein bars and one meal per day. Meal to include lean meat (beef, fish, pork, turkey, chicken), or slovak yogurt, or egg whites, or beans with a salad with olive oil and fruits (berries, pears, apples, kiwi). Avoid salt, breads, potatoes, rice, pasta, desserts. 3. Each shake would be drunk slowly, like coffee in a period of 2 hours. 4. Cut each bar in 4 pieces and eat each piece in 30min ?to make each bar last 2 hours. 5. I emphasized the importance of measuring accurately the food portion and measure it when serving the food in plate 6. The meal portions include 10 full-size forks of meat and 10 full-size forks of salad. You always eat the meat portion but you can replace up to 5 forks for salad/vegetables with rice, potatoes or pasta, or a fruit ?if you like. The less you do it the better weight loss will be. 7. One full-size fork is what it can be scooped on the fork without falling aside and not what can be bit with the fork. Use regular forks like those you find in a typical restaurant. 8.? Please buy the body composition scale we discussed and send me weight measurements as soon as possible and then once a week. Always include your diet and exercise plan. Alternatively come weekly at the office for weight checks and send me the measurements. 9. Start treadmill with an incline of 2.0 and speed of 3.0. Increase incline by 1 every 3 min to a max incline of 8.0, stay 3min at 8.0 and then return to 2.0 and repeat same steps until calorie goal is met. Goal is to burn 2000 calories per week on exercise, which means either 300 calories daily. 10.?It is important of avoiding and for at least 18 months postoperatively and has been discussed at the infosession. 11. Goal is to lose at least 1.5-2lbs per week 12. Goal to lose 10% of your weight before surgery, which is about 27lbs. Ultimate weight goal: 300lbs before surgery 13. Please follow the diet plan exactly without any change. If you don't like something about the plan or you feel hungry you need to communicate with me so I can help you revise the plan. You should not change the plan yourself 14. To be scheduled for EGD to assess the stomach's anatomy. The possibility of biopsies was discussed. Patient needs to avoid use of NSAIDs and aspirin for 1 week prior to EGD. You must be on liquids only the day before your endoscopy. Risks of perforation and bleeding was discussed with the patient. This will be an outpatient procedure with IV sedation.
[2025-08-09 10:24] VITALS: BMI 56.1
== END 2025-08-09 10:44 | disposition home or self-care (01) ==
LOC: HO.HBS 08:14
PROVIDERS: PCP Nurse Practitioner Family; Visit Provider Surgery
DX: E66.01 Morbid (severe) obesity due to excess calories (principal); Z68.43 Body mass index [BMI] 50.0-59.9, adult
CPT/HCPCS: 99203